=== PATIENT | male | born 1930 | race Caucasian/White ===

== ENCOUNTER 2016-10-18 08:49 | Emergency (ER) | payer OTHER, MEDICARE ==
[~2016-10-18] VITALS: Ht 182.9 cm; Wt 91.0 kg
[~2016-10-18 08:49] MED LIST: FURO-85 PO; IPRA0.03 NAE; OMEP20CA9 PO; ZCR40 PO
[2016-10-18 08:51] VITALS: TEMP 36.9; Ht 182.9 cm; Wt 91.0 kg
--- NOTE | 2016-10-18 09:24 | EMERGENCY ROOM VISIT NOTE ---
History First contact with patient: 09:00 Chief Complaint: BACK PAIN Stated Complaint: BACK PAIN, TROUBLE STANDING Nursing Triage Summary: LLQ abd pain, started last night a little but was severe this am, normal bm yesterday, denies n/v/d, hx diverticulitis History of Present Illness The patient is a 86 year old male who presents to the Emergency Room with complaints of left sided pain. Pain largely started this morning at ~6-7am, although he experienced some minor pain last night Acute sharp pain, without radiation, intermittent. exacerbated by any movement at all, even when taking deep breath. Relieved within seconds by staying still. No nausea, no abdominal pain otherwise. Does have longstanding back pain No previous similar episodes No saddle paresthesia, no new numbness or tingling in toes. Has long standing diarrhea, last episode yesterday, no blood in stool Denies UTI symptoms Has appetite, but didn't eat breakfast today No history of kidney stones, hernia, UTI Does have history of diverticulitis S/p colectomy 1970s No chest pain. Review of Systems See HPI for pertinent positives and negatives. A total of ten systems were reviewed and were otherwise negative. 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 (18) Pneumonia (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 Surgical Problems: (1) H/O colonoscopy (2) H/O esophagogastroduodenoscopy (3) H/O laparoscopy (4) H/O neck surgery (5) H/O shoulder surgery (6) History of back surgery (7) History of carpal tunnel surgery (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 (9) S/P cholecystectomy (10) S/P IVC filter Family History Cancer Hypertension Social History Smoking Status: Never Smoker Alcohol Use: none Drug Use: none Marital Status: Housing Status: lives with family Occupation Status: retired Current/Historical Medications Scheduled Aspirin (Aspirin Ec), 81 MG PO DAILY B-Complex W/Biotin & Folic Aci (Super B-50 Complex), 1 CAP PO DAILY Carvedilol (Carvedilol), 6.25 MG PO BID Cod Liver Oil (Cod Liver Oil), 1 CAP PO DAILY Lisinopril (Zestril), 10 MG PO DAILY Magnesium Oxide (Mag-Ox), 400 MG PO DAILY Omeprazole (Prilosec), 20 MG PO DAILY Potassium Chloride Microencaps (Potassium Chloride Er), 10 MEQ PO DAILY Simvastatin (Simvastatin), 20 MG PO HS Scheduled PRN Furosemide (Lasix), 20 MG PO DAILY PRN for wt gain/swelling Ipratropium [place] (Nasal) (Ipratropium [place]), 2 SPRAYS RUPAL QID PRN for runny nose Oxycodone/Acetaminophen 5MG/325MG (Percocet 5MG/325MG), 1 TABLET PO Q6H PRN for Pain Allergies Coded Allergies: Duloxetine (Verified Adverse Reaction, Mild, DIZZINESS, CONFUSION, 10/18/16) Gabapentin (Verified Adverse Reaction, Mild, DIZZINESS, CONFUSION, 10/18/16) Pregabalin (Verified Adverse Reaction, Mild, DIZZINESS, CONFUSION, 10/18/16) Physical Exam Vital Signs Date Time Temp Pulse Resp B/P Pulse Ox O2 Delivery O2 Flow Rate FiO2 10/18/16 13:22 53 162/72 96 10/18/16 10:35 54 152/82 95 10/18/16 08:51 36.9 78 18 151/87 94 Room Air Physical Exam GENERAL: alert, well appearing, thin, sitting in bed, no acute distress, non- toxic HEAD: Normocephalic, atraumatic. No sinus tenderness. EYES: PERRL, EOMI, normal conjunctiva OROPHARYNX: no exudate, no erythema, lips, buccal mucosa, and tongue normal and mucous membranes are moist NECK: supple, no nuchal rigidity, no adenopathy, non-tender LUNGS: Clear to auscultation. Normal chest wall mechanics, good air entry. No crepitations, crackles, or wheezes HEART: no murmurs, S1 normal and S2 normal CHEST: No reproducible tenderness. ABDOMEN: abdomen soft, non-distended, tender to palpation on LLQ, normo-active bowel sounds, no masses, no rebound or guarding. BACK: Back is symmetrical on inspection, no deformities, no midline tenderness, no CVA tenderness. SKIN: Warm, pink, dry. No erythema, rashes, or bruising. EXTREMITIES: Grossly normal. Moving all 4 limbs, strength 5/5. No pitting edema. Calves non tender. NEURO: Alert, Ox3. No focal deficits. Normal sensorium, cranial nerves II-XII grossly intact, normal speech. Kernig and Brudzinski negative PSYCH: Mood and affect appropriate. Medical Decision & Procedures ER Provider Diagnostic Interpretation: CT OF THE ABDOMEN AND PELVIS WITHOUT CONTRAST CLINICAL HISTORY: Left sided abdominal pain. COMPARISON STUDY: CT of the abdomen and pelvis March 21, 2016. TECHNIQUE: Axial images of the abdomen and pelvis were obtained without IV contrast. Images were reviewed in the axial, sagittal, and coronal planes. FINDINGS: Visualized portions of the lower chest demonstrate trace bilateral pleural effusions and associated atelectasis. There are mild groundglass opacities and mild interlobular septal thickening which suggest pulmonary edema. No pneumatosis, free air or portal venous gas is present. Evaluation of the abdomen and pelvis is suboptimal on this unenhanced exam. Apparent gastric wall thickening may be due to underdistention. The gallbladder surgically absent. There is no biliary or pancreatic ductal dilatation. Bilateral adrenal gland thickening is unchanged. This is chronic. Unenhanced images of the spleen, kidneys and pancreas are unremarkable Global. There is no hydronephrosis. Mild bladder wall thickening is unchanged. No renal, ureteral or bladder calculi are present. There is no evidence for a bowel obstruction. The appendix is normal. There is evidence for anasarca. Bilateral iliopsoas bursa are distended and contain calcifications. There are periarticular calcifications of both hips. These findings are unchanged. No suspicious osseous lesions are present. There are postsurgical findings consistent with an L2-S1 fusion with decompression. An IVC filter is in place. IMPRESSION: 1. No significant change since prior exam. No acute process within the abdomen or pelvis. 2. Study compromised by the lack of IV and oral contrast as well as generalized anasarca which makes evaluation difficult. 3. Trace bilateral pleural effusions and findings suggestive of mild interstitial pulmonary edema. 4. Mild bladder wall thickening which is unchanged. 5. No bowel obstruction. 6. 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 These findings are unchanged. Laboratory Results 10/18/16 09:06 Red Blood Count 4.33, Mean Corpuscular Volume 93.5, Mean Corpuscular Hemoglobin 31.4, Mean Corpuscular Hemoglobin Concent 33.6, Mean Platelet Volume 11.3, Neutrophils (%) (Auto) 50.9, Lymphocytes (%) (Auto) 37.3, Monocytes (%) (Auto) 9.9, Eosinophils (%) (Auto) 1.3, Basophils (%) (Auto) 0.3, Neutrophils # (Auto) 3.04, Lymphocytes # (Auto) 2.23, Monocytes # (Auto) 0.59, Eosinophils # (Auto) 0.08, Basophils # (Auto) 0.02 10/18/16 09:06 Test 10/18/16 09:06 10/18/16 11:53 White Blood Count 5.98 K/uL (4.8-10.8) Red Blood Count 4.33 M/uL (4.7-6.1) Hemoglobin 13.6 g/dL (14.0-18.0) Hematocrit 40.5 % (42-52) Mean Corpuscular Volume 93.5 fL (80-100) Mean Corpuscular Hemoglobin 31.4 pg (25-34) Mean Corpuscular Hemoglobin Concent 33.6 g/dl (32-36) Platelet Count 234 K/uL (130-400) Mean Platelet Volume 11.3 fL (7.4-10.4) Neutrophils (%) (Auto) 50.9 % Lymphocytes (%) (Auto) 37.3 % Monocytes (%) (Auto) 9.9 % Eosinophils (%) (Auto) 1.3 % Basophils (%) (Auto) 0.3 % Neutrophils # (Auto) 3.04 K/uL (1.4-6.5) Lymphocytes # (Auto) 2.23 K/uL (1.2-3.4) Monocytes # (Auto) 0.59 K/uL (0.11-0.59) Eosinophils # (Auto) 0.08 K/uL (0-0.5) Basophils # (Auto) 0.02 K/uL (0-0.2) RDW Standard Deviation 48.0 fL (36.4-46.3) RDW Coefficient of Variation 14.1 % (11.5-14.5) Immature Granulocyte % (Auto) 0.3 % Immature Granulocyte # (Auto) 0.02 K/uL (0.00-0.02) Anion Gap 7.0 mmol/L (3-11) Est Creatinine Clear Calc Drug Dose 51.9 ml/min Estimated GFR () 69.6 Estimated GFR (Non- 60.0 BUN/Creatinine Ratio 17.1 (10-20) Calcium Level 9.0 mg/dl (8.5-10.1) Total Bilirubin 0.5 mg/dl (0.2-1) Aspartate Amino Transf (AST/SGOT) 22 U/L (15-37) Alanine Aminotransferase (ALT/SGPT) 23 U/L (12-78) Alkaline Phosphatase 101 U/L (45-117) Total Protein 7.3 gm/dl (6.4-8.2) Albumin 3.2 gm/dl (3.4-5.0) Globulin 4.1 gm/dl (2.5-4.0) Albumin/Globulin Ratio 0.8 (0.9-2) Lipase 225 U/L (73-393) Urine Color YELLOW Urine Appearance CLEAR (CLEAR) Urine pH 7.0 (4.5-7.5) Urine Specific [place] 1.017 (1.000-1.030) Urine Protein 1+ (NEG) Urine Glucose (UA) NEG (NEG) Urine Ketones NEG (NEG) Urine Occult Blood NEG (NEG) Urine Nitrite NEG (NEG) Urine Bilirubin NEG (NEG) Urine Urobilinogen NEG (NEG) Urine Leukocyte Esterase NEG (NEG) Urine WBC (Auto) 1-5 /hpf (0-5) Urine RBC (Auto) 0-4 /hpf (0-4) Urine Hyaline Casts (Auto) 0 /lpf (0-5) Urine Epithelial Cells (Auto) 5-10 /lpf (0-5) Urine Bacteria (Auto) NEG (NEG) Medical Decision 86 year old male presented with LLQ abdominal pain The patient was evaluated in room B2. A complete history and physical exam was performed. Etiologies such as appendicitis, diverticulitis, inflammatory bowel disease, renal colic, PUD, biliary pathology, pancreatitis, mesenteric ischemia, aortic pathology, infections, genitourinary, UTI, perforated viscus, as well as others were entertained. Patient declined medication for symptom relief. Additionally, encouraged for PO hydration to improve hydration status and allow for him to provide urine sample Lab work was performed. CBC borderline anemia, BMP, LFT, and lipase were all grossly normal limits. CT showed no acute process within the abdomen or pelvis, generalized anasarca, trace bilateral pleural effusions and findings suggestive of mild interstitial pulmonary edema. mild unchanged bladder wall thickening but no bowel obstruction. Urinalysis showed contamination, but no evidence of urinary infection. Likely diagnosis is musculoskeletal pain As such, patient prescribed 20 tablets of Percocet 325mg/5mg and advised for conservative management with Tylenol or Motrin for pain relief after acute phase. Advise to follow up with PCP for reassessment and referral to physiotherapy. Also encouraged to increase oral intake to improve hydration status. Patient understands and agreeable with care plan. Patient discharged home well. [place] Drug Monitoring Program Search Results: patient reviewed within database, no issues identified Departure Information Dispostion Home / Self-Care Condition GOOD Prescriptions Oxycodone/Acetaminophen 5MG/325MG (PERCOCET 5MG/325MG) Tab 1 TABLET PO Q6H Y for Pain, #20 TAB PAIN Prov: Alka. Amaro MD 10/18/16 Referrals Eleazar Huerta M.D. (PCP) Patient Instructions A Signature Page, My [facility] Additional Instructions You were seen in the ED for acute flank pain. Labs were performed which were grossly normal, and CT imaging show no acute processes. As such it is likely that the symptoms you are experiencing are secondary to musculoskeletal origin. As such we have prescribed some pain medication, Percocet 5mg/325mg for temporary relief of acute pain. Please do not take more than the amount prescribed. As the acute pain subsides, use over the counter pain medication such as: - Regular strength (325mg/tab) Tylenol (acetaminophen) 2 tabs every 4-6 hours as needed. Do not exceed 12 tablets in a 24 hour period. Avoid taking more than 4 grams (4000 mg) of Tylenol per day. This includes any other sources of acetaminophen you may take on a regular basis. - Regular strength (200 mg/tab) Advil (ibuprofen) 1-2 tabs every 4-6 hours as needed. Do not exceed a dose of 3200 mg per day. You will benefit from PCP follow up within the next 1-2 week and physiotherapy to strengthen core muscles as a preventative measure. You have been examined and treated today on an emergency basis only. This is not a substitute for, or an effort to provide, complete comprehensive medical care. It is impossible to recognize and treat all injuries or illnesses in a single emergency department visit. It is therefore important that you make a follow up with your physician for close monitoring. Return for worsening symptoms or if you develop fever, vomiting, or any other concerning symptoms.
[2016-10-18 09:57] LABS: BASO % 0.3 %; BASO ABS # 0.02 K/uL (0-0.2); COMPLETE YES; EOS % 1.3 %; HEMATOCRIT 40.5 % (42-52); IG% 0.3 %; LYMPH % 37.3 %; LYMPH ABS # 2.23 K/uL (1.2-3.4); MEAN CELL VOLUME 93.5 fL (80-100); MEAN CORPUSCULAR HEMOGLOBIN 31.4 pg (25-34); MEAN CORPUSCULAR HGB CONC 33.6 g/dl (32-36); MEAN PLATELET VOLUME 11.3 fL (7.4-10.4); MONO % 9.9 %; NEUT % 50.9 %; PLATELET COUNT 234 K/uL (130-400); RED BLOOD COUNT 4.33 M/uL (4.7-6.1); WHITE BLOOD COUNT 5.98 K/uL (4.8-10.8)
[2016-10-18 10:07] LABS: BUN/CREATININE RATIO 17.1 (10-20); CREATININE 1.1 mg/dl (0.60-1.40); POTASSIUM 4.1 mmol/L (3.5-5.1)
[2016-10-18 10:08] LABS: ALB/GLOB RATIO 0.8 (0.9-2)
--- NOTE | 2016-10-18 11:04 | DIAGNOSTIC IMAGING REPORT ---
CT OF THE ABDOMEN AND PELVIS WITHOUT CONTRAST CLINICAL HISTORY: Left sided abdominal pain. COMPARISON STUDY: CT of the abdomen and pelvis March 21, 2016. TECHNIQUE: Axial images of the abdomen and pelvis were obtained without IV contrast. Images were reviewed in the axial, sagittal, and coronal planes. FINDINGS: Visualized portions of the lower chest demonstrate trace bilateral pleural effusions and associated atelectasis. There are mild groundglass opacities and mild interlobular septal thickening which suggest pulmonary edema. No pneumatosis, free air or portal venous gas is present. Evaluation of the abdomen and pelvis is suboptimal on this unenhanced exam. Apparent gastric wall thickening may be due to underdistention. The gallbladder surgically absent. There is no biliary or pancreatic ductal dilatation. Bilateral adrenal gland thickening is unchanged. This is chronic. Unenhanced images of the spleen, kidneys and pancreas are unremarkable Global. There is no hydronephrosis. Mild bladder wall thickening is unchanged. No renal, ureteral or bladder calculi are present. There is no evidence for a bowel obstruction. The appendix is normal. There is evidence for anasarca. Bilateral iliopsoas bursa are distended and contain calcifications. There are periarticular calcifications of both hips. These findings are unchanged. No suspicious osseous lesions are present. There are postsurgical findings consistent with an L2-S1 fusion with decompression. An IVC filter is in place. IMPRESSION: 1. No significant change since prior exam. No acute process within the abdomen or pelvis. 2. Study compromised by the lack of IV and oral contrast as well as generalized anasarca which makes evaluation difficult. 3. Trace bilateral pleural effusions and findings suggestive of mild interstitial pulmonary edema. 4. Mild bladder wall thickening which is unchanged. 5. No bowel obstruction. 6. 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 These findings are unchanged. Electronically signed by: Andrew Adam M.D. 10/18/2016 11:02 AM
[2016-10-18 12:08] LABS: URINE APPEARANCE CLEAR (CLEAR); URINE BILIRUBIN NEG (NEG); URINE COLOR YELLOW; URINE NITRITE NEG (NEG); URINE SPECIFIC GRAVITY 1.017 (1.000-1.030); UROBILINOGEN NEG (NEG); ZZUR CULT IF INDIC CLEAN CATCH NO
[2016-10-18 12:10] LABS: MANUAL MICROSCOPIC REQUIRED? NO; REVIEW REQ? NO
--- NOTE | 2016-10-18 12:25 | EMERGENCY ROOM VISIT NOTE ---
History Report prepared by Maddy: Luna Spencer Under the Supervision of: Dr. Scott Hicks D.O. First contact with patient: 09:00 Chief Complaint: BACK PAIN Stated Complaint: BACK PAIN, TROUBLE STANDING Nursing Triage Summary: LLQ abd pain, started last night a little but was severe this am, normal bm yesterday, denies n/v/d, hx diverticulitis History of Present Illness The patient is an 86 year old male who presents to the Emergency Room with complaints of intermittent pains to his left lower abdominal quadrant since last evening. Currently, he rates his discomfort as a 10/10, which worsens and becomes sharp with any movement, including breathing. After michaela a sharp pain with movement, his pain is alleviated with rest after a few seconds. Patient states that he did begin with mild pains to his LLQ last evening, but the sharp pains began suddenly 3.5 hours prior to arrival. His pains do not radiate anywhere and he denies having chest pain or feeling short of breath. Patient does not history of longstanding back pain but his symptoms today do not feel similar to anything that he has experienced in the past. He denies recent fevers, chills, headache, cough, nausea, vomiting, diarrhea, hematochezia , melena, or urinary symptoms. He does have a history of diverticulitis and s/p cholecystectomy in 1969, but he denies history of kidney stones, hernia or UTI. Source of History: patient Onset: last evening Position: abdomen (LLQ) Symptom Intensity: 10/10 Quality: sharp Timing: intermittent Modifying Factors (Worsening): breathing, movement Modifying Factors (Relieving): rest Associated Symptoms: + back pain, No SOB, No chest pain, No diarrhea, No nausea, No urinary symptoms, No vomiting Review of Systems See HPI for pertinent positives & negatives. A total of 10 systems reviewed and were otherwise negative. 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 Surgical Problems: (1) H/O colonoscopy (2) H/O esophagogastroduodenoscopy (3) H/O laparoscopy (4) H/O neck surgery (5) H/O shoulder surgery (6) History of back surgery (7) History of carpal tunnel surgery (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 (9) S/P cholecystectomy (10) S/P IVC filter Family History Cancer Hypertension Social History Smoking Status: Never Smoker Alcohol Use: none Drug Use: none Marital Status: Housing Status: lives with family Occupation Status: retired Current/Historical Medications Scheduled Aspirin (Aspirin Ec), 81 MG PO DAILY B-Complex W/Biotin & Folic Aci (Super B-50 Complex), 1 CAP PO DAILY Carvedilol (Carvedilol), 6.25 MG PO BID Cod Liver Oil (Cod Liver Oil), 1 CAP PO DAILY Lisinopril (Zestril), 10 MG PO DAILY Magnesium Oxide (Mag-Ox), 400 MG PO DAILY Omeprazole (Prilosec), 20 MG PO DAILY Potassium Chloride Microencaps (Potassium Chloride Er), 10 MEQ PO DAILY Simvastatin (Simvastatin), 20 MG PO HS Scheduled PRN Furosemide (Lasix), 20 MG PO DAILY PRN for wt gain/swelling Ipratropium Amoret (Nasal) (Ipratropium Amoret), 2 SPRAYS RUPAL QID PRN for runny nose Allergies Coded Allergies: Duloxetine (Verified Adverse Reaction, Mild, DIZZINESS, CONFUSION, 10/18/16) Gabapentin (Verified Adverse Reaction, Mild, DIZZINESS, CONFUSION, 10/18/16) Pregabalin (Verified Adverse Reaction, Mild, DIZZINESS, CONFUSION, 10/18/16) Physical Exam Vital Signs Date Time Temp Pulse Resp B/P Pulse Ox O2 Delivery O2 Flow Rate FiO2 10/18/16 10:35 54 152/82 95 10/18/16 08:51 36.9 78 18 151/87 94 Room Air Physical Exam CONSTITUTIONAL/VITAL SIGNS: Reviewed / noted above. GENERAL: Non-toxic in appearance. INTEGUMENTARY: Warm, dry, and [place]. HEAD: Normocephalic. EYES: without scleral icterus or trauma. ENT/OROPHARYNX: clear and moist. LYMPHADENOPATHY/NECK: Is supple without lymphadenopathy or meningismus. RESPIRATORY: Lungs clear and equal. CARDIOVASCULAR: Regular rate and rhythm. GI/ABDOMEN: Soft, nontender. No organomegaly or pulsatile mass. No palpable hernias. No rebound or guarding. Normal bowel sounds. EXTREMITIES: Passive movement of the left hip did not reveal any discomfort. Active movement of the hip causes discomfort in the LLQ and left flank area. BACK: Palpable tenderness to the left flank and anterolateral soft tissues. NEUROLOGICAL: Intact without focal deficits. PSYCHIATRIC: normal affect. MUSCULOSKELETAL: Normally developed with good muscle tone. Medical Decision & Procedures Laboratory Results 10/18/16 09:06 Red Blood Count 4.33, Mean Corpuscular Volume 93.5, Mean Corpuscular Hemoglobin 31.4, Mean Corpuscular Hemoglobin Concent 33.6, Mean Platelet Volume 11.3, Neutrophils (%) (Auto) 50.9, Lymphocytes (%) (Auto) 37.3, Monocytes (%) (Auto) 9.9, Eosinophils (%) (Auto) 1.3, Basophils (%) (Auto) 0.3, Neutrophils # (Auto) 3.04, Lymphocytes # (Auto) 2.23, Monocytes # (Auto) 0.59, Eosinophils # (Auto) 0.08, Basophils # (Auto) 0.02 10/18/16 09:06 Test 10/18/16 09:06 10/18/16 11:53 White Blood Count 5.98 K/uL (4.8-10.8) Red Blood Count 4.33 M/uL (4.7-6.1) Hemoglobin 13.6 g/dL (14.0-18.0) Hematocrit 40.5 % (42-52) Mean Corpuscular Volume 93.5 fL (80-100) Mean Corpuscular Hemoglobin 31.4 pg (25-34) Mean Corpuscular Hemoglobin Concent 33.6 g/dl (32-36) Platelet Count 234 K/uL (130-400) Mean Platelet Volume 11.3 fL (7.4-10.4) Neutrophils (%) (Auto) 50.9 % Lymphocytes (%) (Auto) 37.3 % Monocytes (%) (Auto) 9.9 % Eosinophils (%) (Auto) 1.3 % Basophils (%) (Auto) 0.3 % Neutrophils # (Auto) 3.04 K/uL (1.4-6.5) Lymphocytes # (Auto) 2.23 K/uL (1.2-3.4) Monocytes # (Auto) 0.59 K/uL (0.11-0.59) Eosinophils # (Auto) 0.08 K/uL (0-0.5) Basophils # (Auto) 0.02 K/uL (0-0.2) RDW Standard Deviation 48.0 fL (36.4-46.3) RDW Coefficient of Variation 14.1 % (11.5-14.5) Immature Granulocyte % (Auto) 0.3 % Immature Granulocyte # (Auto) 0.02 K/uL (0.00-0.02) Anion Gap 7.0 mmol/L (3-11) Est Creatinine Clear Calc Drug Dose 51.9 ml/min Estimated GFR () 69.6 Estimated GFR (Non- 60.0 BUN/Creatinine Ratio 17.1 (10-20) Calcium Level 9.0 mg/dl (8.5-10.1) Total Bilirubin 0.5 mg/dl (0.2-1) Aspartate Amino Transf (AST/SGOT) 22 U/L (15-37) Alanine Aminotransferase (ALT/SGPT) 23 U/L (12-78) Alkaline Phosphatase 101 U/L (45-117) Total Protein 7.3 gm/dl (6.4-8.2) Albumin 3.2 gm/dl (3.4-5.0) Globulin 4.1 gm/dl (2.5-4.0) Albumin/Globulin Ratio 0.8 (0.9-2) Lipase 225 U/L (73-393) Urine Color YELLOW Urine Appearance CLEAR (CLEAR) Urine pH 7.0 (4.5-7.5) Urine Specific [place] 1.017 (1.000-1.030) Urine Protein 1+ (NEG) Urine Glucose (UA) NEG (NEG) Urine Ketones NEG (NEG) Urine Occult Blood NEG (NEG) Urine Nitrite NEG (NEG) Urine Bilirubin NEG (NEG) Urine Urobilinogen NEG (NEG) Urine Leukocyte Esterase NEG (NEG) Urine WBC (Auto) 1-5 /hpf (0-5) Urine RBC (Auto) 0-4 /hpf (0-4) Urine Hyaline Casts (Auto) 0 /lpf (0-5) Urine Epithelial Cells (Auto) 5-10 /lpf (0-5) Urine Bacteria (Auto) NEG (NEG) Laboratory results as stated above per my review. ED Course 0900: Previous medical records were reviewed. The patient was evaluated in room B2. A complete history and physical examination was performed. 1130: Upon reevaluation, the patient was doing well and appeared to be resting more comfortably. I updated him on the results of his lab tests. Discharge instructions were also discussed at this time. He verbalized his understanding and agreement with the treatment plan, and he is now ready for disposition. Medical Decision Differential diagnosis: Etiologies such as musculoskeletal, disc herniation, fracture, aortic disease, metastatic disease, cord compression, discitis, infection, renal colic, gastrointestinal, acute exacerbation of chronic back pain, sciatica, cauda equina, as well as others were entertained. This patient is a 86-year-old male who presents to the ED with a chief complaint of left sided abdominal and back pain related to movement. This patient was seen in conjunction with the resident. The patient's exam reveals tenderness to palpation of the soft tissue in the muscle on the left flank and left abdomen. Patient's CT scan of the abdomen and pelvis as well as blood work did not show any acute intra-abdominal process. On my exam it seems to be muscular. His pain is worse with movement and better with lying still. Patient was treated with Percocet prescription. Physical therapy was recommended. He was felt to be stable for discharge and outpatient follow-up. Impression Primary Impression: Pain in abdominal muscle of left flank Scribe Attestation The scribe's documentation has been prepared under my direction and personally reviewed by me in its entirety. I confirm that the note above accurately reflects all work, treatment, procedures, and medical decision making performed by me. Departure Information Dispostion Home / Self-Care Referrals Eleazar Huerta M.D. (PCP) Forms HOME CARE DOCUMENTATION FORM, IMPORTANT VISIT INFORMATION Patient Instructions A Signature Page, My [facility]
[2016-10-18] MEDS ORDERED: OXYC-57 PO (12:44)
[2016-10-18 13:22] VITALS: BP 162/72; PULSE 53; O2SAT 96
[2017-04-14] MEDS ORDERED: ASPI81TA28 PO (09:41)
[2017-04-14] MEDS ORDERED: POTA10TA32 PO (10:14)
[2017-04-14] MEDS ORDERED: MAGN400T6 PO (14:13)
[2017-04-14] MEDS ORDERED: PANT40TA PO (14:38)
[2017-04-14] MEDS ORDERED: MELA1TAB5 PO (14:38)
[2017-04-14] MEDS ORDERED: [UNRECOGNIZED DRUG - CODE] PO (14:38)
[2017-04-14] MEDS ORDERED: MRN/25 PO (14:38)
[2017-04-14] MEDS ORDERED: LEVE500T13 PO (14:38)
[2017-04-14] MEDS ORDERED: ATOR-22 PO (14:38)
[2017-04-14] MEDS ORDERED: DOCU-94 PO (14:38)
[2017-04-14] MEDS ORDERED: CODCAP4 PO (21:47)
[2017-04-15] MEDS ORDERED: MAGN400T6 PO (11:52)
== END 2016-10-18 13:23 | disposition home or self-care (01) ==
LOC: C.EDB 08:51
DX: R10.9 Unspecified abdominal pain (principal); M79.1 Myalgia; I12.9 Hypertensive chronic kidney disease with stage 1 through stage 4 chronic kidney disease, or unspecified chronic kidney disease; E11.22 Type 2 diabetes mellitus with diabetic chronic kidney disease; N18.3 Chronic kidney disease, stage 3 (moderate); E11.42 Type 2 diabetes mellitus with diabetic polyneuropathy; E78.5 Hyperlipidemia, unspecified; Z85.048 Personal history of other malignant neoplasm of rectum, rectosigmoid junction, and anus; K21.9 Gastro-esophageal reflux disease without esophagitis; Z85.828 Personal history of other malignant neoplasm of skin; Z86.74 Personal history of sudden cardiac arrest; Z86.711 Personal history of pulmonary embolism; Z86.718 Personal history of other venous thrombosis and embolism; Z79.82 Long term (current) use of aspirin; Z79.899 Other long term (current) drug therapy

== ENCOUNTER 2016-12-15 12:31 | Emergency (ER) | payer OTHER, MEDICARE ==
[~2016-12-15] VITALS: Ht 182.9 cm; Wt 90.0 kg
[~2016-12-15 12:31] MED LIST changes: +OXYC-57 PO
[2016-12-15 12:36] VITALS: TEMP 36.3; Ht 182.9 cm; Wt 90.0 kg
[2016-12-15 13:35] LABS: BASO % 0.2 %; BASO ABS # 0.01 K/uL (0-0.2); COMPLETE YES; EOS % 0.9 %; HEMATOCRIT 39.9 % (42-52); IG% 0.4 %; LYMPH % 31.7 %; LYMPH ABS # 1.69 K/uL (1.2-3.4); MEAN CELL VOLUME 90.7 fL (80-100); MEAN CORPUSCULAR HEMOGLOBIN 30.7 pg (25-34); MEAN CORPUSCULAR HGB CONC 33.8 g/dl (32-36); MEAN PLATELET VOLUME 11.1 fL (7.4-10.4); MONO % 10.5 %; NEUT % 56.3 %; PLATELET COUNT 244 K/uL (130-400); WHITE BLOOD COUNT 5.33 K/uL (4.8-10.8)
[2016-12-15 13:53] LABS: BUN/CREATININE RATIO 17.7 (10-20); CALCIUM 9.1 mg/dl (8.5-10.1); CREATININE 1.1 mg/dl (0.60-1.40); POTASSIUM 4.2 mmol/L (3.5-5.1)
--- NOTE | 2016-12-15 14:21 | DIAGNOSTIC IMAGING REPORT ---
CT SCAN OF THE ABDOMEN AND PELVIS WITHOUT CONTRAST CLINICAL HISTORY: Lower abdominal pain and constipation COMPARISON STUDY: 10/18/2016 TECHNIQUE: CT scan of the abdomen and pelvis was performed from the lung bases to the proximal femurs. Images are reviewed in the axial, sagittal, and coronal planes. IV contrast was not administered for this examination. CT DOSE: 443.99 mGy.cm FINDINGS: Lower chest: There are stable right basilar airspace opacities, likely reflecting atelectasis/scar. There is a small left pleural effusion. Liver: There is equivocal 5 mm hypodensity within the right hepatic dome. Gallbladder: Surgically absent Spleen: Normal in size and attenuation. Pancreas: Unremarkable. Adrenal glands: There is bilateral adrenal gland thickening similar to the prior study Kidneys: No renal, ureteral, or bladder calculi are visualized. Bowel: There are no transition zones indicate bowel obstruction. There is no evidence of acute appendicitis. There is no evidence of acute diverticulitis. There is moderate fecal retention. Peritoneum: There is no intraperitoneal free air or abdominal ascites. Vasculature: There is an indwelling IVC filter. Adenopathy: None. Pelvic viscera: The bladder, and pelvic viscera are unremarkable. Skeletal structures: There are bilateral iliopsoas bursal calcifications. There are postsurgical changes present within the spine. There is anasarca present. IMPRESSION: 1. Difficult study to interpret due to the lack of intravenous and oral contrast, as well as the generalized anasarca. 2. No evidence of bowel obstruction. No evidence of free air 3. No renal, ureteral, or bladder calculi identified 4. Anasarca 5. Moderate fecal retention 6. Calcifications within a distended iliopsoas bursa bilaterally Electronically signed by: Devante Orosco M.D. 12/15/2016 2:20 PM Dictated Date/Time: 12/15/2016 2:14 PM
[2016-12-15 15:58] LABS: URINE APPEARANCE CLEAR (CLEAR); URINE BILIRUBIN NEG (NEG); URINE COLOR YELLOW; URINE EPITHELIAL CELL AUTO 0-5 /lpf (0-5); URINE NITRITE NEG (NEG); URINE PH 7.5 (4.5-7.5); URINE SPECIFIC GRAVITY 1.019 (1.000-1.030); UROBILINOGEN NEG (NEG); ZZUR CULT IF INDIC CLEAN CATCH NO
[2016-12-15 16:19] LABS: MANUAL MICROSCOPIC REQUIRED? NO; REVIEW REQ? NO
[2016-12-15 16:20] LABS: SULFASALICYLIC ACID POS (NEG)
[2016-12-15] MEDS ORDERED: MAGNESIUM CITRATE 296 ML/BTL PO STA (17:47)
[2016-12-15 18:04] VITALS: BP 167/80; PULSE 60; O2SAT 96
--- NOTE | 2016-12-15 21:57 | EMERGENCY ROOM VISIT NOTE ---
History Report prepared by Maddy: Brad Ivory Under the Supervision of: Dr. Keshawn Cosme M.D. First contact with patient: 13:01 Chief Complaint: CONSTIPATION Stated Complaint: BOWEL TROUBLES Nursing Triage Summary: c/o lower abd pain has not had a BM for 1 wk no n/v History of Present Illness The patient is an 86 year old male who presents to the Emergency Room with complaints of persistent constipation that started a week ago. Per the patient' s , the patient was having diarrhea and couldn't get it to stop, so the patient went to see an associate of Dr. Huerta, and the patient was told to take diarrhea pills. The patient was told to take the pills twice in the morning , twice in the afternoon, and twice in the evening for one week. On the second day of taking the pills, the diarrhea stopped, and he became constipated. He also began having persistent lower abdominal pain. The patient has not had a bowel movement for a week. He has taken suppositories, enemas, and milk of magnesia, but per the patient, nothing is working. The patient has continued to be eating, but nothing is coming out. He took the diarrhea pills for a week. The patient also complains of nausea, and feeling like vomiting, but he has not vomited. He had 12 inches of his colon removed for polyps. Pt denies LOC, headache, fevers, chills, diaphoresis, visual changes, neck pain, chest pain, breathing difficulties, vomiting, back pain, urinary symptoms, numbness, weakness, lymphadenopathy, rash, or other complaints. Source of History: patient, spouse/significant other Onset: A week ago Position: other (global - constipation) Symptom Intensity: has not had bowel movement in a week Timing: other (persistent) Associated Symptoms: + abdominal pain, + diarrhea (ended a week ago), + nausea Note: No other associated symptoms noted. Review of Systems See HPI for pertinent positives and negatives. A total of ten systems were reviewed and were otherwise negative. 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 Surgical Problems: (1) H/O colonoscopy (2) H/O esophagogastroduodenoscopy (3) H/O laparoscopy (4) H/O neck surgery (5) H/O shoulder surgery (6) History of back surgery (7) History of carpal tunnel surgery (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 (9) S/P cholecystectomy (10) S/P IVC filter Family History Cancer Hypertension Social History Smoking Status: Never Smoker Alcohol Use: none Drug Use: none Marital Status: Housing Status: lives with family Occupation Status: retired Current/Historical Medications Scheduled Aspirin (Aspirin Ec), 81 MG PO DAILY B-Complex W/Biotin & Folic Aci (Super B-50 Complex), 1 CAP PO DAILY Carvedilol (Carvedilol), 6.25 MG PO BID Cod Liver Oil (Cod Liver Oil), 1 CAP PO DAILY Lisinopril (Zestril), 10 MG PO DAILY Magnesium Oxide (Mag-Ox), 400 MG PO DAILY Omeprazole (Prilosec), 20 MG PO DAILY Potassium Chloride Microencaps (Potassium Chloride Er), 10 MEQ PO DAILY Simvastatin (Simvastatin), 20 MG PO HS Scheduled PRN Furosemide (Lasix), 20 MG PO DAILY PRN for wt gain/swelling Ipratropium [place] (Nasal) (Ipratropium [place]), 2 SPRAYS RUPAL QID PRN for runny nose Oxycodone/Acetaminophen 5MG/325MG (Percocet 5MG/325MG), 1 TABLET PO Q6H PRN for Pain Allergies Coded Allergies: Duloxetine (Verified Adverse Reaction, Mild, DIZZINESS, CONFUSION, 12/15/16) Gabapentin (Verified Adverse Reaction, Mild, DIZZINESS, CONFUSION, 12/15/16) Pregabalin (Verified Adverse Reaction, Mild, DIZZINESS, CONFUSION, 12/15/16) Physical Exam Vital Signs Date Time Temp Pulse Resp B/P Pulse Ox O2 Delivery O2 Flow Rate FiO2 12/15/16 18:04 60 16 167/80 96 12/15/16 17:41 90 18 159/86 92 Room Air 12/15/16 16:00 61 18 178/75 12/15/16 15:12 58 12/15/16 15:11 60 16 122/90 95 Room Air 12/15/16 12:36 36.3 97 18 120/79 95 Room Air Physical Exam GENERAL: Awake, alert, well-appearing, in no distress HENT: Normocephalic, atraumatic. Oropharynx unremarkable. EYES: Normal conjunctiva. Sclera non-icteric. NECK: Supple. No nuchal rigidity. FROM. No JVD. RESPIRATORY: Clear to auscultation. CARDIAC: Regular rate, normal rhythm. Extremities warm and well perfused. Pulses equal. ABDOMEN: Soft, non-distended. Lower abdominal tenderness. No rebound or guarding. No masses. RECTAL: Deferred. MUSCULOSKELETAL: Chest examination reveals no tenderness. The back is symmetrical on inspection without obvious abnormality. There is no CVA tenderness to palpation. No joint edema. LOWER EXTREMITIES: Calves are equal size bilaterally and non-tender. No edema. No discoloration. RECTAL: No fecal impaction, no hemorrhoids or fissures. NEURO: Normal sensorium. No sensory or motor deficits noted. SKIN: No rash or jaundice noted. Medical Decision & Procedures ER Provider Diagnostic Interpretation: CT: Radiology results as stated below per my review and radiologist interpretation CT SCAN OF THE ABDOMEN AND PELVIS WITHOUT CONTRAST CLINICAL HISTORY: Lower abdominal pain and constipation COMPARISON STUDY: 10/18/2016 TECHNIQUE: CT scan of the abdomen and pelvis was performed from the lung bases to the proximal femurs. Images are reviewed in the axial, sagittal, and coronal planes. IV contrast was not administered for this examination. CT DOSE: 443.99 mGy.cm FINDINGS: Lower chest: There are stable right basilar airspace opacities, likely reflecting atelectasis/scar. There is a small left pleural effusion. Liver: There is equivocal 5 mm hypodensity within the right hepatic dome. Gallbladder: Surgically absent Spleen: Normal in size and attenuation. Pancreas: Unremarkable. Adrenal glands: There is bilateral adrenal gland thickening similar to the prior study Kidneys: No renal, ureteral, or bladder calculi are visualized. Bowel: There are no transition zones indicate bowel obstruction. There is no evidence of acute appendicitis. There is no evidence of acute diverticulitis. There is moderate fecal retention. Peritoneum: There is no intraperitoneal free air or abdominal ascites. Vasculature: There is an indwelling IVC filter. Adenopathy: None. Pelvic viscera: The bladder, and pelvic viscera are unremarkable. Skeletal structures: There are bilateral iliopsoas bursal calcifications. There are postsurgical changes present within the spine. There is anasarca present. IMPRESSION: 1. Difficult study to interpret due to the lack of intravenous and oral contrast, as well as the generalized anasarca. 2. No evidence of bowel obstruction. No evidence of free air 3. No renal, ureteral, or bladder calculi identified 4. Anasarca 5. Moderate fecal retention 6. Calcifications within a distended iliopsoas bursa bilaterally Electronically signed by: Devante Orosco M.D. 12/15/2016 2:20 PM Dictated Date/Time: 12/15/2016 2:14 PM Laboratory Results 12/15/16 13:20 Red Blood Count 4.40, Mean Corpuscular Volume 90.7, Mean Corpuscular Hemoglobin 30.7, Mean Corpuscular Hemoglobin Concent 33.8, Mean Platelet Volume 11.1, Neutrophils (%) (Auto) 56.3, Lymphocytes (%) (Auto) 31.7, Monocytes (%) (Auto) 10.5, Eosinophils (%) (Auto) 0.9, Basophils (%) (Auto) 0.2, Neutrophils # (Auto ) 3.00, Lymphocytes # (Auto) 1.69, Monocytes # (Auto) 0.56, Eosinophils # (Auto ) 0.05, Basophils # (Auto) 0.01 12/15/16 13:20 Test 12/15/16 13:20 12/15/16 15:40 White Blood Count 5.33 K/uL (4.8-10.8) Red Blood Count 4.40 M/uL (4.7-6.1) Hemoglobin 13.5 g/dL (14.0-18.0) Hematocrit 39.9 % (42-52) Mean Corpuscular Volume 90.7 fL (80-100) Mean Corpuscular Hemoglobin 30.7 pg (25-34) Mean Corpuscular Hemoglobin Concent 33.8 g/dl (32-36) Platelet Count 244 K/uL (130-400) Mean Platelet Volume 11.1 fL (7.4-10.4) Neutrophils (%) (Auto) 56.3 % Lymphocytes (%) (Auto) 31.7 % Monocytes (%) (Auto) 10.5 % Eosinophils (%) (Auto) 0.9 % Basophils (%) (Auto) 0.2 % Neutrophils # (Auto) 3.00 K/uL (1.4-6.5) Lymphocytes # (Auto) 1.69 K/uL (1.2-3.4) Monocytes # (Auto) 0.56 K/uL (0.11-0.59) Eosinophils # (Auto) 0.05 K/uL (0-0.5) Basophils # (Auto) 0.01 K/uL (0-0.2) RDW Standard Deviation 45.8 fL (36.4-46.3) RDW Coefficient of Variation 13.8 % (11.5-14.5) Immature Granulocyte % (Auto) 0.4 % Immature Granulocyte # (Auto) 0.02 K/uL (0.00-0.02) Anion Gap 8.0 mmol/L (3-11) Est Creatinine Clear Calc Drug Dose 51.9 ml/min Estimated GFR () 69.6 Estimated GFR (Non- 60.0 BUN/Creatinine Ratio 17.7 (10-20) Calcium Level 9.1 mg/dl (8.5-10.1) Total Bilirubin 0.6 mg/dl (0.2-1) Direct Bilirubin 0.2 mg/dl (0-0.2) Aspartate Amino Transf (AST/SGOT) 20 U/L (15-37) Alanine Aminotransferase (ALT/SGPT) 17 U/L (12-78) Alkaline Phosphatase 95 U/L (45-117) Total Protein 7.2 gm/dl (6.4-8.2) Albumin 3.1 gm/dl (3.4-5.0) Lipase 134 U/L (73-393) Urine Color YELLOW Urine Appearance CLEAR (CLEAR) Urine pH 7.5 (4.5-7.5) Urine Specific [address] 1.019 (1.000-1.030) Urine Protein 1+ (NEG) Urine Glucose (UA) NEG (NEG) Urine Ketones NEG (NEG) Urine Occult Blood NEG (NEG) Urine Nitrite NEG (NEG) Urine Bilirubin NEG (NEG) Urine Urobilinogen NEG (NEG) Urine Leukocyte Esterase NEG (NEG) Urine WBC (Auto) 1-5 /hpf (0-5) Urine RBC (Auto) 0-4 /hpf (0-4) Urine Hyaline Casts (Auto) 1-5 /lpf (0-5) Urine Epithelial Cells (Auto) 0-5 /lpf (0-5) Urine Bacteria (Auto) NEG (NEG) Laboratory results reviewed by me Medications Administered Medications (Trade) Dose Ordered Sig/Behzad Route Start Time Stop Time Status Last Admin Dose Admin Magnesium Citrate (Citrate Of Magnesia Soln) 296 ml NOW STAT PO 12/15/16 17:47 12/15/16 17:49 DC 12/15/16 17:59 296 ML ED Course 1307: The patient was evaluated in room B3B. A complete history and physical exam was performed. 1530: I reevaluated the patient and he is getting an enema. 1705: I reevaluated the patient and he had some bright red bleeding with the start of the enema. I performed a rectal exam and he has no fecal impaction, hemorrhoids, or fissures. The enema was restarted and it is going normally without any signs of bleeding. 1747: Ordered Citrate of Magnesia Soln 296 ml PO. 1755: I reevaluated the patient and he had a bowel movement with the enema. He had no additional bleeding. He is going to follow up with his primary care physician. Discussed results and discharge instructions: He verbalized understanding and agreement. The patient is ready for discharge. Medical Decision Prior records/ancillary studies reviewed. Triage Nursing notes reviewed and agree them. Additional history obtained from family. The patient's history was concerning for constipation. Differential diagnosis: Etiologies such as functional constipation, impaction, obstruction, volvulus, metabolic abnormality, infection, neurologic, as well as others were entertained. Physical examination findings: As above. ER treatment provided: Patient declined analgesia and nausea medication. Soapsuds enema On reassessment the patient felt better. Diagnostics interpreted by me: The labs revealed an unremarkable CBC, chemistry panel, LFTs, lipase and urinalysis Imaging studies: CT scan as above moderate stool noted. The patient was evaluated. He had some lower abdominal discomfort. Blood work and urinalysis were unremarkable. CAT scan imaging showed some moderate stool retention. There is no fecal impaction present. A soapsuds enema was ordered after discussion with the patient and family. As this was being done the patient did have some mild rectal bleeding. I did evaluate the patient. Rectal examination did not reveal any gross bleeding. I could not detect any masses. The patient didn't have any pain on rectal examination. The enema was restarted in the standard fashion. There was no obvious abnormalities with tube insertion. The patient tolerated this well. He then had several chunks of hard stool produced. He felt better with this. He may have had some mucosal bleeding or possible internal hemorrhoid irritation. He has had several enemas and suppositories already. Since he is doing very well and feels better I discussed conservative management. The patient will use magnesium citrate as well as MiraLAX. If he has any problems she will come back to emergency department. He will need follow-up. The patient is no longer taking that antidiarrheal medicine and was advised not to in the future for an extended period. By the evaluation outlined above emergent etiologies such as obstruction, volvulus, metabolic abnormality, infection , neurologic, as well as others were deemed relatively unlikely. The patient and family were informed about the findings as listed above. All questions were answered and they were pleased with the treatment. Return instructions were outlined and the patient was discharged in stable condition. Outpatient prescription management: Referral: The patient was referred back to their primary care physician for follow-up in 2 to 3 days for a recheck of the current condition. The chart was completed utilizing [employer] Speech voice recognition software. Grammatical errors, random word insertions, pronoun errors, and incomplete sentences are an occasional consequence of this system due to software limitations, ambient noise, and hardware issues. Any formal questions or concerns about the content, text, or information contained within the body of this dictation should be directly addressed to the physician for clarification. Impression Primary Impression: Lower abdominal pain Additional Impression: Constipation Scribe Attestation The scribe's documentation has been prepared under my direction and personally reviewed by me in its entirety. I confirm that the note above accurately reflects all work, treatment, procedures, and medical decision making performed by me. Departure Information Dispostion Home / Self-Care Referrals Eleazar Huerta M.D. (PCP) Forms HOME CARE DOCUMENTATION FORM, IMPORTANT VISIT INFORMATION Patient Instructions My [facility] Additional Instructions Magnesium citrate, 1/2 bottle for constipation. If you don't have a good bowel movement in 8 hrs then drink the other half. This is available over-the- counter. Of the MiraLAX, 1 capful daily mixed with a glass of water or juice as needed for constipation. Rest and drink plenty of fluids. Increase fiber in your diet. Return to the ER for worsening abdominal pain, vomiting, fevers, bloody stools, or as needed. Follow-up with your primary care physician in 2 to 3 days for a recheck of your current condition. Problem Qualifiers
[2017-04-14] MEDS ORDERED: ASPI81TA28 PO (09:41)
[2017-04-14] MEDS ORDERED: POTA10TA32 PO (10:14)
[2017-04-14] MEDS ORDERED: MAGN400T6 PO (14:13)
[2017-04-14] MEDS ORDERED: LEVE500T13 PO (14:38)
[2017-04-14] MEDS ORDERED: PANT40TA PO (14:38)
[2017-04-14] MEDS ORDERED: DOCU-94 PO (14:38)
[2017-04-14] MEDS ORDERED: MRN/25 PO (14:38)
[2017-04-14] MEDS ORDERED: [UNRECOGNIZED DRUG - CODE] PO (14:38)
[2017-04-14] MEDS ORDERED: ATOR-22 PO (14:38)
[2017-04-14] MEDS ORDERED: MELA1TAB5 PO (14:38)
[2017-04-15] MEDS ORDERED: MAGN400T6 PO (11:52)
== END 2016-12-15 18:07 | disposition home or self-care (01) ==
LOC: C.EDB 12:32
DX: R10.30 Lower abdominal pain, unspecified (principal); K59.00 Constipation, unspecified; G30.9 Alzheimer's disease, unspecified; F02.80 Dementia in other diseases classified elsewhere, unspecified severity, without behavioral disturbance, psychotic disturbance, mood disturbance, and anxiety; I12.9 Hypertensive chronic kidney disease with stage 1 through stage 4 chronic kidney disease, or unspecified chronic kidney disease; H54.42 Blindness, left eye, normal vision right eye; Z86.74 Personal history of sudden cardiac arrest; K21.9 Gastro-esophageal reflux disease without esophagitis; K57.92 Diverticulitis of intestine, part unspecified, without perforation or abscess without bleeding; Z86.73 Personal history of transient ischemic attack (TIA), and cerebral infarction without residual deficits; E78.5 Hyperlipidemia, unspecified; Z85.048 Personal history of other malignant neoplasm of rectum, rectosigmoid junction, and anus; E11.42 Type 2 diabetes mellitus with diabetic polyneuropathy; N18.3 Chronic kidney disease, stage 3 (moderate); Z80.9 Family history of malignant neoplasm, unspecified; Z82.49 Family history of ischemic heart disease and other diseases of the circulatory system; Z79.82 Long term (current) use of aspirin; Z79.899 Other long term (current) drug therapy

== ENCOUNTER 2017-03-18 12:58 | Emergency (ER) | payer OTHER, MEDICARE ==
[~2017-03-18] VITALS: Ht 182.9 cm; Wt 83.0 kg
[2017-03-18 13:03] VITALS: TEMP 36.3; Ht 182.9 cm; Wt 83.0 kg
--- NOTE | 2017-03-18 14:59 | DIAGNOSTIC IMAGING REPORT ---
RIGHT KNEE 3 VIEWS CLINICAL HISTORY: Fall with right knee pain. FINDINGS: AP, crosstable lateral, and sunrise views of the right knee are obtained. No prior studies are available for comparison at the time of dictation. The skeletal structures are osteopenic. No fracture is seen. A right knee arthroplasty is in near-anatomic alignment. No periprosthetic lucency is identified. There has been undersurface remodeling of the patella. There is a large joint effusion. Prepatellar soft tissue edema is noted. Calcific densities are identified posterior to the knee. IMPRESSION: 1. Soft tissue edema and joint effusion. No fracture is seen. 2. A right knee arthroplasty is in near-anatomic alignment. Electronically signed by: Irving Ricci M.D. 03/18/2017 2:57 PM Dictated Date/Time: 03/18/2017 2:55 PM
[2017-03-18 15:01] VITALS: BP 172/93; PULSE 71; O2SAT 98
[2017-03-18] MEDS ORDERED: HYDR-5688 PO (15:11)
--- NOTE | 2017-03-19 08:24 | EMERGENCY ROOM VISIT NOTE ---
History First contact with patient: 14:42 Chief Complaint: LEG PAIN,LEG INJURY Stated Complaint: RIGHT LEG PAIN History of Present Illness The patient is a 86 year old white male who presents to the Emergency Room with complaints of right knee pain and swelling since last evening. Patient was going up some steps and tripped, falling forward onto his right knee. He had immediate onset of pain. There is a history of previous total knee arthroplasty over [address] Coburn in [place]. He had been doing very well with the knee until last night. He has pain with weightbearing. He is ambulatory with a limp. No numbness or tingling. No treatment yet. His family accompanies him today. No symptoms in the left knee. He denies any right ankle pain. Review of Systems REVIEW OF SYSTEM: HEENT: No dizziness, visual problems, hearing loss, or tinnitus. There is no difficulty swallowing and no oral lesions are present. PULMONARY: No cough, shortness of breath, sputum production or hemoptysis. CARDIOVASCULAR: No chest pain, palpitations, shortness of breath or peripheral edema. GASTROINTESTINAL: No diarrhea, constipation, nausea, vomiting, or abdominal pain. GENITOURINARY: No dysuria, frequency, urgency or nocturia. NEUROLOGIC: No weakness, muscle tenderness, epilepsy or history of neurological problems. MUSCULOSKELETAL: No history of joint tenderness/swelling. Positive history of arthritis and arthralgias. SKIN: No rashes or lesions. PSYCHIATRIC: No history of depression or mental illness. Positive history of Alzheimer's. ENDOCRINE: No history of thyroid disorders, or abnormal hair growth. 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 (18) Pneumonia (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 Surgical Problems: (1) H/O colonoscopy (2) H/O esophagogastroduodenoscopy (3) H/O laparoscopy (4) H/O neck surgery (5) H/O shoulder surgery (6) History of back surgery (7) History of carpal tunnel surgery (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 (9) S/P cholecystectomy (10) S/P IVC filter Family History Cancer Hypertension Social History Smoking Status: Former Smoker Smokeless Tobacco Use: No Alcohol Use: none Drug Use: none Marital Status: Housing Status: lives with family Occupation Status: retired Current/Historical Medications Scheduled Aspirin (Aspirin Ec), 81 MG PO DAILY Atorvastatin (Lipitor), 20 MG PO DAILY B-Complex W/Biotin & Folic Aci (Super B-50 Complex), 1 CAP PO DAILY Calcium Polycarbophil (Eq Fiber Laxative), 625 MG PO DAILY Carvedilol (Carvedilol), 6.25 MG PO BID Cod Liver Oil (Cod Liver Oil), 1 CAP PO DAILY Docusate Sodium (Colace), 100 MG PO BID Dronabinol (Marinol), 2.5 MG PO BID Levetiracetam (Keppra), 500 MG PO BID Lisinopril (Zestril), 10 MG PO DAILY Magnesium Oxide (Mag-Ox), 400 MG PO DAILY Melatonin (Kp Melatonin), 3 MG PO HS Pantoprazole (Protonix), 40 MG PO DAILY Potassium Chloride Microencaps (Potassium Chloride Er), 10 MEQ PO DAILY Scheduled PRN Hydrocodone/Acetaminophen 5MG/325MG ([place] 5MG/325MG), 1-2 TABLET PO Q6 PRN for Pain Allergies Coded Allergies: Duloxetine (Verified Adverse Reaction, Mild, DIZZINESS, CONFUSION, 03/18/17) Gabapentin (Verified Adverse Reaction, Mild, DIZZINESS, CONFUSION, 03/18/17) Pregabalin (Verified Adverse Reaction, Mild, DIZZINESS, CONFUSION, 03/18/17) Physical Exam Vital Signs Date Time Temp Pulse Resp B/P (MAP) Pulse Ox O2 Delivery O2 Flow Rate FiO2 03/18/17 15:01 71 18 172/93 98 Room Air 03/18/17 13:03 36.3 71 18 107/64 97 Room Air Pain Rating (0-10): 0 Physical Exam Gen.: Well-developed, well-nourished, elderly white male, in no acute distress. Obvious discomfort. Laying on a bed. Alert and oriented. Skin: Warm and dry with good turgor. No rashes or lesions. No ecchymosis or erythema. The patient is not diaphoretic. No abrasions. Large intra- articular effusion. Musculoskeletal: Large knee effusion in the right knee. Anterior discomfort with palpation. No pain over the medial or lateral joint lines. He does have discomfort over the patellar tendon and quadriceps tendon. No defect in either of these. He is able to perform a straight leg raise. Full terminal extension. Flexion to around 60 secondary to discomfort. Stable collateral ligament. No pain with palpation over the posterior Popliteal Fossa. No pain with palpation over his ch, ankle, or foot. Neurologic: Gross sensation is intact across the right leg by soft touch. Peripheral pulses are 2+. Medical Decision & Procedures ER Provider Diagnostic Interpretation: Radiographic imaging obtained today of the knee, was read by radiology. Well seated implant. No evidence of loosening. No fracture. Intra-articular effusion is noted. ED Course Patient and his family were educated regarding today's findings. Conservative care measures were discussed. X-ray imaging of the knee was obtained. He has no evidence of tendon rupture and no collateral ligament instability. Patient was placed in an Bill wrap for compression and a knee immobilizer for support. He may weight-bear as tolerated. He has a walker at home. Patient will need to follow-up with orthopedics for reexamination. His family would like him to see Dr. Duron. Number was provided. ice and elevate frequently to reduce pain and swelling. Gentle motion daily. Return to the ED for any other concerns. Prescription was provided for [place] 5 mg to be used for severe pain. Constipation precautions were given. He may use Tylenol every 6 hours for mild pain. Medical Decision Possibility of contusion, tendon rupture, ligament rupture, fracture, hardware failure, implantable loosening and infection were considered. Impression Primary Impression: Knee effusion, right Additional Impression: Fall at home Departure Information Dispostion Home / Self-Care Condition GOOD Prescriptions Hydrocodone/Acetaminophen 5MG/325MG ([place] 5MG/325MG) Tab 1-2 TABLET PO Q6 Y for Pain, #15 TAB For Initial Treatment Prov: Harpreet Carmen,P.A. 03/18/17 Referrals Erich Duron M.D. Forms HOME CARE DOCUMENTATION FORM, SPECIAL NARCOTICS INSTRUCTIONS, IMPORTANT VISIT INFORMATION Patient Instructions My [email or web address] Additional Instructions Ice and elevate frequently to reduce pain and swelling Use the Bill wrap for compression and support Use the knee immobilizer when you are standing or walking Use your walker for support until painfully resolves Follow-up with [place] [facility]-call on Monday for an appointment Tylenol every 6 hours as needed for mild discomfort Substitute [place] 5 mg every 6 hours as needed for more severe pain-be careful for loss of balance and constipation which can occur with this medication Return to the ED for any other concerns Problem Qualifiers
[2017-04-14] MEDS ORDERED: ASPI81TA28 PO (09:41)
[2017-04-14] MEDS ORDERED: POTA10TA32 PO (10:14)
[2017-04-14] MEDS ORDERED: MAGN400T6 PO (14:13)
[2017-04-14] MEDS ORDERED: PANT40TA PO (14:38)
[2017-04-14] MEDS ORDERED: MRN/25 PO (14:38)
[2017-04-14] MEDS ORDERED: DOCU-94 PO (14:38)
[2017-04-14] MEDS ORDERED: ATOR-22 PO (14:38)
[2017-04-14] MEDS ORDERED: LEVE500T13 PO (14:38)
[2017-04-14] MEDS ORDERED: MELA1TAB5 PO (14:38)
[2017-04-14] MEDS ORDERED: [UNRECOGNIZED DRUG - CODE] PO (14:38)
[2017-04-14] MEDS ORDERED: CODCAP4 PO (21:47)
[2017-04-15] MEDS ORDERED: MAGN400T6 PO (11:52)
== END 2017-03-18 15:51 | disposition home or self-care (01) ==
LOC: C.EDB 13:00 → C.EDD 15:51
DX: M25.461 Effusion, right knee (principal); W01.0XXA Fall on same level from slipping, tripping and stumbling without subsequent striking against object, initial encounter; E78.5 Hyperlipidemia, unspecified; I12.9 Hypertensive chronic kidney disease with stage 1 through stage 4 chronic kidney disease, or unspecified chronic kidney disease; N18.3 Chronic kidney disease, stage 3 (moderate); E11.42 Type 2 diabetes mellitus with diabetic polyneuropathy; G30.9 Alzheimer's disease, unspecified; F02.80 Dementia in other diseases classified elsewhere, unspecified severity, without behavioral disturbance, psychotic disturbance, mood disturbance, and anxiety; K21.9 Gastro-esophageal reflux disease without esophagitis; K57.92 Diverticulitis of intestine, part unspecified, without perforation or abscess without bleeding; Z86.711 Personal history of pulmonary embolism; Z86.718 Personal history of other venous thrombosis and embolism; Z86.73 Personal history of transient ischemic attack (TIA), and cerebral infarction without residual deficits; Z85.038 Personal history of other malignant neoplasm of large intestine; Z85.828 Personal history of other malignant neoplasm of skin; Z96.651 Presence of right artificial knee joint; Z90.49 Acquired absence of other specified parts of digestive tract; Z98.890 Other specified postprocedural states; Z79.82 Long term (current) use of aspirin; Z79.899 Other long term (current) drug therapy; Z87.891 Personal history of nicotine dependence; Z88.8 Allergy status to other drugs, medicaments and biological substances; Z80.9 Family history of malignant neoplasm, unspecified; Z82.49 Family history of ischemic heart disease and other diseases of the circulatory system

== ENCOUNTER → 2017-03-31 | Outpatient (CLI) | payer OTHER, MEDICARE ==
[~2017-03-31] MED LIST changes: +ASPI81TA28 PO; +ATOR-22 PO; +B-CO1CAP2 PO; +CODCAP4 PO; +CRG625 PO; +DOCU-94 PO; -FURO-85 PO; +HYDR-5688 PO; -IPRA0.03 NAE; +LEVE500T13 PO; +LISI-461 PO; +MAGN400T6 PO; +MELA1TAB5 PO; +MRN/25 PO; -OMEP20CA9 PO; -OXYC-57 PO; +PANT40TA PO; +POTA10TA32 PO; -ZCR40 PO; +[UNRECOGNIZED DRUG - CODE] PO
[2017-03-31 12:23] LABS: BASO % 0.3 %; BASO ABS # 0.02 K/uL (0-0.2); COMPLETE YES; EOS % 1.1 %; IG% 0.2 %; LYMPH % 41.5 %; MEAN CELL VOLUME 95.6 fL (80-100); MEAN CORPUSCULAR HEMOGLOBIN 29.8 pg (25-34); MEAN CORPUSCULAR HGB CONC 31.2 g/dl (32-36); MEAN PLATELET VOLUME 10.9 fL (7.4-10.4); MONO % 7.7 %; NEUT % 49.2 %; PLATELET COUNT 295 K/uL (130-400); RED BLOOD COUNT 4.29 M/uL (4.7-6.1); WHITE BLOOD COUNT 6.27 K/uL (4.8-10.8)
--- NOTE | 2017-03-31 13:42 | DIAGNOSTIC IMAGING REPORT ---
3 phase bone scan BONE SCAN 3 PHASE LIMITED CLINICAL HISTORY: RT PAINFUL TKA post arthroplasty pain TECHNIQUE: Is examination is performed following the administration and multiphase fashion of 27.5 mCi technetium 99m MDP. FINDINGS: There is a slight increase in vascular flow to the right knee is compared to the left. Blood pool images demonstrate increased activity about the right knee with similar findings seen involving the static images at 3 hour time delay. There is no significant and/or only minimal degenerative activity left knee. IMPRESSION: 1. Increased vascular flow as well as activity about the patient's total right knee arthroplasty. 2. The appearance is suggestive of loosening. 3. Remainder the study is unremarkable. Electronically signed by: Dane Mccann M.D. 03/31/2017 1:41 PM Dictated Date/Time: 03/31/2017 1:39 PM
== END | disposition home or self-care (01) ==
LOC: C.NUCL 09:17
PROVIDERS: ATTEND Orthopaedic Surgery Sports Medicine
DX: Z96.651 Presence of right artificial knee joint (principal)

== ENCOUNTER 2017-04-14 14:51 | Observation (INO) | payer OTHER, MEDICARE ==
[~2017-04-14] VITALS: Ht 182.9 cm; Wt 84.5 kg
[~2017-04-14 14:51] MED LIST changes: -B-CO1CAP2 PO; -CODCAP4 PO; -CRG625 PO; -LISI-461 PO
[2017-04-14] MEDS ORDERED: SODIUM CHLORIDE 0.9% 1000ML 1,000 ML IV STA (16:04)
--- NOTE | 2017-04-14 16:07 | EMERGENCY ROOM VISIT NOTE ---
History Report prepared by Maddy: Christi Griggs Under the Supervision of: Dr. Stacie Garcia M.D. First contact with patient: 15:16 Chief Complaint: LEG PAIN,LEG INJURY Stated Complaint: HAVING TROUBLE WALKING History of Present Illness The patient is a 86 year old male who presents to the Emergency Room with complaints of persistent bilateral lower extremity weakness starting about 2-3 days ago. He currently denies any pain. The patient has a history of back surgeries occurring about 3 years ago. He has a normal appetite and a normal fluid intake. He denies fevers, bowel/urinary incontinence, or any other complaints. He has an appointment with his PCP in two days. He has a history of cardiac arrest occurring a few years ago. He had a head bleed from a fall in January. He denies any history of kidney disease. He is not currently on any blood thinners. Source of History: patient Onset: about 2-3 days ago Position: other (bilateral lower extremity ) Symptom Intensity: No pain Quality: other (weakness) Timing: other (persistent) Associated Symptoms: No fevers Review of Systems See HPI for pertinent positives & negatives. A total of 10 systems reviewed and were otherwise negative. 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 (19) Pneumonia (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 (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 (22) Weakness of both legs Surgical Problems: (1) H/O colonoscopy (2) H/O esophagogastroduodenoscopy (3) H/O laparoscopy (4) H/O neck surgery (5) H/O shoulder surgery (6) History of back surgery (7) History of carpal tunnel surgery (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 (9) S/P cholecystectomy (10) S/P IVC filter Family History Cancer Hypertension Social History Smoking Status: Former Smoker Alcohol Use: none Drug Use: none Marital Status: Housing Status: lives with family Occupation Status: retired Current/Historical Medications Scheduled Aspirin (Aspirin Ec), 81 MG PO DAILY Atorvastatin (Lipitor), 20 MG PO DAILY B-Complex W/Biotin & Folic Aci (Super B-50 Complex), 1 CAP PO DAILY Carvedilol (Carvedilol), 6.25 MG PO BID Cod Liver Oil (Cod Liver Oil), 1 CAP PO DAILY Docusate Sodium (Colace), 100 MG PO BID Dronabinol (Marinol), 2.5 MG PO BID Levetiracetam (Keppra), 500 MG PO BID Lisinopril (Zestril), 10 MG PO DAILY Magnesium Oxide (Mag-Ox), 400 MG PO BID Melatonin (Kp Melatonin), 3 MG PO HS Pantoprazole (Protonix), 40 MG PO DAILY Potassium Chloride Microencaps (Potassium Chloride Er), 10 MEQ PO DAILY Scheduled PRN Calcium Polycarbophil (Eq Fiber Laxative), 625 MG PO DAILY PRN for Constipation Allergies Coded Allergies: Duloxetine (Verified Adverse Reaction, Mild, DIZZINESS, CONFUSION, 03/18/17) Gabapentin (Verified Adverse Reaction, Mild, DIZZINESS, CONFUSION, 03/18/17) Pregabalin (Verified Adverse Reaction, Mild, DIZZINESS, CONFUSION, 03/18/17) Physical Exam Vital Signs Date Time Temp Pulse Resp B/P (MAP) Pulse Ox O2 Delivery O2 Flow Rate FiO2 04/14/17 18:21 60 22 97 04/14/17 18:20 36.5 04/14/17 18:11 36.5 63 18 153/74 97 04/14/17 18:02 58 04/14/17 18:00 153/74 04/14/17 14:53 76 20 114/67 94 Physical Exam Vital signs reviewed. General: Well-appearing, elderly, in no significant distress. HEENT: No scleral icterus, PERRLA, neck supple. Atraumatic. Cardiovascular: Regular rate and rhythm, no extra sounds. Pulmonary: Clear to auscultation bilaterally, normal work of breathing. Abdomen: Soft, nontender, nondistended, positive bowel sounds. Musculoskeletal: Atraumatic, no peripheral edema. Neurologic: Patient awake alert and oriented x 3, full strength in all 4 extremities. Cranial nerves 2 through 12 grossly intact. Skin: Warm, dry, no rash Medical Decision & Procedures ER Provider Diagnostic Interpretation: CT results as stated below per my review and radiologist interpretation: CT SCAN OF THE BRAIN WITHOUT IV CONTRAST CLINICAL HISTORY: Generalized weakness. Difficulty with ambulation. COMPARISON STUDY: CT of the brain dated 07/26/2014. TECHNIQUE: Unenhanced axial CT scan of the brain is performed from the vertex to the skull base. CT DOSE: 687.98 mGy.cm FINDINGS: Brain parenchyma: There are age-related involutional changes noting moderate patchy subcortical and periventricular microangiopathic change. There is no hemorrhage, mass effect, or evidence of acute territorial ischemia by CT criteria. Ding-white matter is preserved. No extra-axial fluid collection is seen. Ventricles, sulci, cisterns: Prominent secondary to involutional change. Intracranial vasculature: There is atherosclerotic calcification of the cavernous carotid and vertebral arteries. Soft tissues: Suture material is present within the suboccipital scalp. Postoperative changes suggested in the upper cervical region. Calvarium: The skeletal structures are osteopenic. No depressed calvarial fracture is seen. Sinuses and mastoids: The visualized paranasal sinuses are clear. There are bilateral mastoid effusions. Orbits: The bony orbits are grossly intact. There is a right ocular lens implant. The left ocular lens appears dislocated, located centrally within the globe. IMPRESSION: 1. Senescent changes as above with no hemorrhage, mass effect, or evidence of acute territorial ischemia by CT criteria. 2. 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 This is similar to previous. Electronically signed by: Irving Ricci M.D. 04/14/2017 5:11 PM Dictated Date/Time: 04/14/2017 4:[address] SCAN OF THE LUMBAR SPINE WITHOUT IV CONTRAST CLINICAL HISTORY: Bilateral lower extremity weakness. Back pain. History of spinal fusion. COMPARISON STUDY: CT scan of lumbar spine dated 08/15/2014. Abdominal CT dated 12/15/2016. MRI of the lumbar spine dated 09/15/2015. TECHNIQUE: CT scan of the lumbar spine is performed from the lower thoracic spine to the sacrum. Images are reviewed in the axial, sagittal, and coronal planes. IV contrast was not administered for this examination. CT DOSE: 1097.85 mGy.cm FINDINGS: The skeletal structures are osteopenic. There is no evidence of fracture or malalignment. Vertebral body height is maintained throughout the lumbar spine. There is minimal anterolisthesis at L4-L5. Alignment is otherwise preserved. There are postoperative changes from laminectomy and posterior fusion from L2 through S1. Intervertebral screws are present at all levels, anterolaterally located on the right at L4 and L5. There is lucency around the screws in L2, possibly representing loosening. Interposition bone graft is noted. No lytic or blastic lesions are seen. The transverse processes are intact. There is no bony erosion or evidence of periostitis. Anterior osteophytes are seen throughout. There is moderate degenerative disc space narrowing at L4-L5 with advanced disc space narrowing seen at L5-S1. Posterior discussed by complex is present is levels. There is no evidence of large disc herniation suggested by CT comment no CT evidence of significant central canal stenosis. There are 2 metallic densities identified within the central canal posteriorly at the level of T12. These are best seen on sagittal images #32 and #33. The visualized sacrum and bony pelvis appear intact. Postoperative change is seen within the paraspinous musculature which is largely atrophic. There is advanced atherosclerotic calcification of the abdominal aorta. A left pleural effusion is partially visualized. Bilateral adrenal adenomas are identified. The kidneys demonstrate cortical atrophy. There is no evidence of hydronephrosis. An IVC filter is in place. IMPRESSION: 1. No acute bony abnormality is seen involving the lumbar spine. 2. There are postoperative changes from L2-S1 spinal fusion. The orthopedic hardware appears intact. 3. There is lucency around the interpedicular screws in L2, which may represent loosening. 4. There are 2 metallic foreign bodies identified within the central canal posteriorly at the level of T12. These may represent catheter fragments, and clinical correlation will be essential. This is likely a contraindication to MRI. 5. Left pleural effusion. 6. Additional findings as above. Electronically signed by: Irving Ricci M.D. 04/14/2017 5:23 PM Dictated Date/Time: 04/14/2017 5:13 PM Laboratory Results Test 04/14/17 16:30 04/14/17 16:32 04/14/17 17:55 Immature Granulocyte % (Auto) 0.2 % White Blood Count 5.83 K/uL (4.8-10.8) Red Blood Count 3.99 M/uL (4.7-6.1) Hemoglobin 12.4 g/dL (14.0-18.0) Hematocrit 37.8 % (42-52) Mean Corpuscular Volume 94.7 fL (80-100) Mean Corpuscular Hemoglobin 31.1 pg (25-34) Mean Corpuscular Hemoglobin Concent 32.8 g/dl (32-36) Platelet Count 213 K/uL (130-400) Mean Platelet Volume 11.0 fL (7.4-10.4) Neutrophils (%) (Auto) 45.0 % Lymphocytes (%) (Auto) 46.1 % Monocytes (%) (Auto) 7.5 % Eosinophils (%) (Auto) 0.9 % Basophils (%) (Auto) 0.3 % Neutrophils # (Auto) 2.62 K/uL (1.4-6.5) Lymphocytes # (Auto) 2.69 K/uL (1.2-3.4) Monocytes # (Auto) 0.44 K/uL (0.11-0.59) Eosinophils # (Auto) 0.05 K/uL (0-0.5) Basophils # (Auto) 0.02 K/uL (0-0.2) Immature Granulocyte # (Auto) 0.01 K/uL (0.00-0.02) Prothrombin Time 12.7 SECONDS (9.0-12.0) Prothromb Time International Ratio 1.2 (0.9-1.1) Activated Partial Thromboplast Time 25.9 SECONDS (21.0-31.0) Partial Thromboplastin Ratio 1.0 Total Bilirubin 0.3 mg/dl (0.2-1) Direct Bilirubin 0.1 mg/dl (0-0.2) Aspartate Amino Transf (AST/SGOT) 28 U/L (15-37) Alanine Aminotransferase (ALT/SGPT) 24 U/L (12-78) Alkaline Phosphatase 125 U/L (45-117) Total Protein 7.0 gm/dl (6.4-8.2) Albumin 2.5 gm/dl (3.4-5.0) Bedside Troponin I < 0.030 ng/ml (0-0.045) Urine Color DK YELLOW Urine Appearance CLEAR (CLEAR) Urine pH 6.5 (4.5-7.5) Urine Specific [place] 1.024 (1.000-1.030) Urine Protein 2+ (NEG) Urine Glucose (UA) NEG (NEG) Urine Ketones TRACE (NEG) Urine Occult Blood NEG (NEG) Urine Nitrite NEG (NEG) Urine Bilirubin NEG (NEG) Urine Urobilinogen NEG (NEG) Urine Leukocyte Esterase NEG (NEG) Urine WBC (Auto) 1-5 /hpf (0-5) Urine RBC (Auto) 0-4 /hpf (0-4) Urine Hyaline Casts (Auto) 1-5 /lpf (0-5) Urine Epithelial Cells (Auto) 5-10 /lpf (0-5) Urine Bacteria (Auto) NEG (NEG) Laboratory results per my review. Medications Administered Medications (Trade) Dose Ordered Sig/Behzad Route Start Time Stop Time Status Last Admin Dose Admin Sodium Chloride 1,000 ml @ 125 mls/hr Q8H STAT IV 04/14/17 16:04 04/14/17 20:11 DC 04/14/17 16:04 125 MLS/HR Magnesium Sulfate (Magnesium Sulfate) 2 gm NOW STAT IV 04/14/17 17:18 04/14/17 17:19 DC 04/14/17 17:18 2 GM ECG Indication: weakness Rate (beats per minute): 56 Rhythm: sinus bradycardia Findings: no acute ischemic change, no ectopy ED Course 1516: Past medical records reviewed. The patient was evaluated in room A04B. A complete history and physical examination was performed. 1604: Sodium Chloride 1000 ml @ 125 mls/hr IV 1718: Magnesium Sulfate 2 gm IV 1801: Upon reevaluation, the patient is resting comfortably. I discussed laboratory and radiographic results with him. He verbalized agreement of the treatment plan. I spoke with Dr. Sanz of the [facility]. The patient will be evaluated for further management and care. Medical Decision Medication Reconciliation: I attest that I have personally reviewed the patient' s current medication list. Blood Pressure Screening: Patient was found to have normal blood pressure on screening and does not require follow-up. This pt was evaluated and appeared to be in no distress. IV access was obtained and lab work was drawn. CT head is negative for acute IC abnl. Lab work reveals a mag of 1.4 for which he was repleted with 2 gm IV. IVF were given. Pt was unsteady on his feet for my ambulation trial. UA is negative for infection. EKG reveals a sinus bay with no ectopy or ischemia. Cardiac enzymes are negative. He will be evaluated by the hospitalist service for further management. Pt and family are aware of the plan and agree. Consults Time Called: 1755 Consulting Physician: Dr. Sanz of the [facility] Returned Call: [address] Sanz of the [facility]. Impression Primary Impression: Hypomagnesemia Additional Impression: Generalized weakness Scribe Attestation The scribe's documentation has been prepared under my direction and personally reviewed by me in its entirety. I confirm that the note above accurately reflects all work, treatment, procedures, and medical decision making performed by me. Departure Information Dispostion Being Evaluated By Hospitalist Prescriptions Magnesium Oxide (Mag-Ox) 400 Mg Tab 400 MG PO BID for 30 Days, #60 TAB Prov: Miranda Mckeon M.D. 04/15/17 Referrals Eleazar Huerta M.D. (PCP) Patient Instructions My [facility] Problem Qualifiers
[2017-04-14 16:47] LABS: BASO % 0.3 %; BASO ABS # 0.02 K/uL (0-0.2); COMPLETE YES; EOS % 0.9 %; HEMATOCRIT 37.8 % (42-52); IG% 0.2 %; LYMPH % 46.1 %; LYMPH ABS # 2.69 K/uL (1.2-3.4); MEAN CELL VOLUME 94.7 fL (80-100); MEAN CORPUSCULAR HEMOGLOBIN 31.1 pg (25-34); MEAN CORPUSCULAR HGB CONC 32.8 g/dl (32-36); MONO % 7.5 %; PLATELET COUNT 213 K/uL (130-400); RED BLOOD COUNT 3.99 M/uL (4.7-6.1); WHITE BLOOD COUNT 5.83 K/uL (4.8-10.8)
[2017-04-14 17:03] LABS: BUN/CREATININE RATIO 18.5 (10-20); CALCIUM 8.8 mg/dl (8.5-10.1); CREATININE 1.1 mg/dl (0.60-1.40); MAGNESIUM 1.4 mg/dl (1.8-2.4); POTASSIUM 4.2 mmol/L (3.5-5.1)
[2017-04-14 17:08] LABS: INR 1.2 (0.9-1.1); PROTHROMBIN TIME (PATIENT) 12.7 SECONDS (9.0-12.0)
--- NOTE | 2017-04-14 17:13 | DIAGNOSTIC IMAGING REPORT ---
CT SCAN OF THE BRAIN WITHOUT IV CONTRAST CLINICAL HISTORY: Generalized weakness. Difficulty with ambulation. COMPARISON STUDY: CT of the brain dated 07/26/2014. TECHNIQUE: Unenhanced axial CT scan of the brain is performed from the vertex to the skull base. CT DOSE: 687.98 mGy.cm FINDINGS: Brain parenchyma: There are age-related involutional changes noting moderate patchy subcortical and periventricular microangiopathic change. There is no hemorrhage, mass effect, or evidence of acute territorial ischemia by CT criteria. Ding-white matter is preserved. No extra-axial fluid collection is seen. Ventricles, sulci, cisterns: Prominent secondary to involutional change. Intracranial vasculature: There is atherosclerotic calcification of the cavernous carotid and vertebral arteries. Soft tissues: Suture material is present within the suboccipital scalp. Postoperative changes suggested in the upper cervical region. Calvarium: The skeletal structures are osteopenic. No depressed calvarial fracture is seen. Sinuses and mastoids: The visualized paranasal sinuses are clear. There are bilateral mastoid effusions. Orbits: The bony orbits are grossly intact. There is a right ocular lens implant. The left ocular lens appears dislocated, located centrally within the globe. IMPRESSION: 1. Senescent changes as above with no hemorrhage, mass effect, or evidence of acute territorial ischemia by CT criteria. 2. 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 This is similar to previous. Electronically signed by: Irving Ricci M.D. 04/14/2017 5:11 PM Dictated Date/Time: 04/14/2017 4:59 PM
[2017-04-14] MEDS ORDERED: MAGNESIUM SULFATE 1GM / D5W 1 GM BAG IV STA (17:18)
--- NOTE | 2017-04-14 17:24 | DIAGNOSTIC IMAGING REPORT ---
CT SCAN OF THE LUMBAR SPINE WITHOUT IV CONTRAST CLINICAL HISTORY: Bilateral lower extremity weakness. Back pain. History of spinal fusion. COMPARISON STUDY: CT scan of lumbar spine dated 08/15/2014. Abdominal CT dated 12/15/2016. MRI of the lumbar spine dated 09/15/2015. TECHNIQUE: CT scan of the lumbar spine is performed from the lower thoracic spine to the sacrum. Images are reviewed in the axial, sagittal, and coronal planes. IV contrast was not administered for this examination. CT DOSE: 1097.85 mGy.cm FINDINGS: The skeletal structures are osteopenic. There is no evidence of fracture or malalignment. Vertebral body height is maintained throughout the lumbar spine. There is minimal anterolisthesis at L4-L5. Alignment is otherwise preserved. There are postoperative changes from laminectomy and posterior fusion from L2 through S1. Intervertebral screws are present at all levels, anterolaterally located on the right at L4 and L5. There is lucency around the screws in L2, possibly representing loosening. Interposition bone graft is noted. No lytic or blastic lesions are seen. The transverse processes are intact. There is no bony erosion or evidence of periostitis. Anterior osteophytes are seen throughout. There is moderate degenerative disc space narrowing at L4-L5 with advanced disc space narrowing seen at L5-S1. Posterior discussed by complex is present is levels. There is no evidence of large disc herniation suggested by CT comment no CT evidence of significant central canal stenosis. There are 2 metallic densities identified within the central canal posteriorly at the level of T12. These are best seen on sagittal images #32 and #33. The visualized sacrum and bony pelvis appear intact. Postoperative change is seen within the paraspinous musculature which is largely atrophic. There is advanced atherosclerotic calcification of the abdominal aorta. A left pleural effusion is partially visualized. Bilateral adrenal adenomas are identified. The kidneys demonstrate cortical atrophy. There is no evidence of hydronephrosis. An IVC filter is in place. IMPRESSION: 1. No acute bony abnormality is seen involving the lumbar spine. 2. There are postoperative changes from L2-S1 spinal fusion. The orthopedic hardware appears intact. 3. There is lucency around the interpedicular screws in L2, which may represent loosening. 4. There are 2 metallic foreign bodies identified within the central canal posteriorly at the level of T12. These may represent catheter fragments, and clinical correlation will be essential. This is likely a contraindication to MRI. 5. Left pleural effusion. 6. Additional findings as above. Electronically signed by: Irving Ricci M.D. 04/14/2017 5:23 PM Dictated Date/Time: 04/14/2017 5:13 PM
[2017-04-14 18:17] LABS: URINE APPEARANCE CLEAR (CLEAR); URINE BILIRUBIN NEG (NEG); URINE COLOR DK YELLOW; URINE NITRITE NEG (NEG); URINE PH 6.5 (4.5-7.5); URINE SPECIFIC GRAVITY 1.024 (1.000-1.030); UROBILINOGEN NEG (NEG); ZZUR CULT IF INDIC CLEAN CATCH NO
[2017-04-14 18:21] LABS: MANUAL MICROSCOPIC REQUIRED? NO; REVIEW REQ? NO
--- NOTE | 2017-04-14 18:22 | History and Physical ---
History & Physical Date & Time of Service: Apr 14, 2017 at 18:22 Chief Complaint: Having Trouble Walking Primary Care Physician: Eleazar Huerta M.D. History of Present Illness Source: patient this is a 86 yo M with past medical hx of chronic low back pain , spinal stenosis , HTN , CKD stage 3 came to ED for weakness of bilat lower ext pt mentions he has been experiencing chronic low back pain with radiation to both upper thigh and knee R> L had lumber decompression done by Dr Mix on 2013 pt mentions his back pain was not improved after the procedure recently he started to experience bilateral lower ext weakness feels his legs would give away he sustained a fall few days back , landed on his left knee worried about it -as he is being evaluated by Orthopedics -considering for left knee replacement during my time of interview , pt was comfortable mentions does not have any pain or discomfort while lying still or sitting walking for few min /standing causes severe pain on lower back , shooting down to legs denies of any bowel or bladder incontinence no report of fever or chills , no SOB , chest pain no Syncope Past Medical/Surgical History Medical Problems: (1) Benign hypertension Status: Chronic (2) Blind left eye Status: Chronic (3) Cardiac arrest Status: Resolved (4) DIAB MADDY WO COMPL, TYPE II OR UNSPEC TYPE, NOT UNCNTRLD Status: Chronic (5) DISC DEGENERATION NOS Status: Chronic (6) Diverticulitis Status: Resolved (7) GERD (gastroesophageal reflux disease) Status: Chronic (8) H/O diastolic dysfunction Status: Chronic (9) History of CVA (cerebrovascular accident) Status: Chronic (10) Hx of deep venous thrombosis Status: Chronic (11) Hx of squamous cell carcinoma of skin Status: Chronic (12) Hx of vertigo Status: Chronic (13) Hx pulmonary embolism Status: Chronic (14) Hyperlipidemia Status: Chronic (15) 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 Osorio- nonspecific colinic thickening, minor diverticulosis, tubular adenoma- per Epic record Status: Chronic (2) H/O esophagogastroduodenoscopy Permanent Comment: 08/2012- Normal oropharynx. A few erosions at the gastroesophageal junction. Normal stomach. Normal examined duodenum. Status: Chronic (3) H/O laparoscopy Status: Chronic (4) H/O neck surgery Status: Chronic (5) H/O shoulder surgery Status: Chronic (6) History of back surgery Status: Chronic (7) History of carpal tunnel surgery Status: Chronic (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 Status: Chronic (9) S/P cholecystectomy Status: Chronic (10) S/P IVC filter Status: Chronic Family History Cancer Hypertension Social History Smoking Status: Former Smoker Drug Use: none Marital Status: Housing status: lives with family Occupational Status: retired Immunizations History of Influenza Vaccine: Yes History of Tetanus Vaccine?: Unknown History of Pneumococcal: Yes History of Hepatitis B Vaccine: No Multi-Drug Resistant Organisms History of MDRO: No Allergies Coded Allergies: Duloxetine (Verified Adverse Reaction, Mild, DIZZINESS, CONFUSION, 03/18/17) Gabapentin (Verified Adverse Reaction, Mild, DIZZINESS, CONFUSION, 03/18/17) Pregabalin (Verified Adverse Reaction, Mild, DIZZINESS, CONFUSION, 03/18/17) Home Medications Scheduled Aspirin (Aspirin Ec), 81 MG PO DAILY Atorvastatin (Lipitor), 20 MG PO DAILY B-Complex W/Biotin & Folic Aci (Super B-50 Complex), 1 CAP PO DAILY Carvedilol (Carvedilol), 6.25 MG PO BID Cod Liver Oil (Cod Liver Oil), 1 CAP PO DAILY Docusate Sodium (Colace), 100 MG PO BID Dronabinol (Marinol), 2.5 MG PO BID Levetiracetam (Keppra), 500 MG PO BID Lisinopril (Zestril), 10 MG PO DAILY Magnesium Oxide (Mag-Ox), 400 MG PO DAILY Melatonin (Kp Melatonin), 3 MG PO HS Pantoprazole (Protonix), 40 MG PO DAILY Potassium Chloride Microencaps (Potassium Chloride Er), 10 MEQ PO DAILY Scheduled PRN Calcium Polycarbophil (Eq Fiber Laxative), 625 MG PO DAILY PRN for Constipation Review of Systems Constitutional: No fever, No chills, No sweats, No weight loss, No weakness, No fatigue, No problem reported Eyes: No worsening of vision, No eye pain, No redness, No discharge, No diplopia, No problem reported ENT: No hearing loss, No unusual epistaxis, No nasal symptoms, No sore throat, No tinnitus, No dental problems, No trouble swallowing, No problem reported Respiratory: No cough, No sputum, No wheezing, No shortness of breath, No dyspnea on exertion, No dyspnea at rest, No hemoptysis, No problem reported Cardiovascular: No chest pain, No orthopnea, No PND, No edema, No claudication , No palpitations, No problem reported Abdomen: No pain, No nausea, No vomiting, No diarrhea, No constipation, No GI bleeding, No problem reported Musculoskeletal: + problem reported (as per HPI -low back pain /rediation to leg , left knee pain ) Neurologic: + weakness, + numbness/tingling, + balance problems Physical Exam Vital Signs Date Time Temp Pulse Resp B/P (MAP) Pulse Ox O2 Delivery O2 Flow Rate FiO2 04/14/17 18:11 36.5 63 18 153/74 97 04/14/17 18:02 58 04/14/17 14:53 76 20 114/67 94 General Appearance: no apparent distress Head: normocephalic, atraumatic Eyes: sclerae normal Respiratory/Chest: chest non-tender, lungs clear, normal breath sounds, no respiratory distress Cardiovascular: regular rate, rhythm, no edema Abdomen/GI: normal bowel sounds, non tender, soft Back: normal inspection Extremities/Musculoskelatal: no pedal edema, normal range of motion (limited range of motion on left leg due to back pain ) Neurologic/Psych: no motor/sensory deficits, alert, normal mood/affect Skin: normal color, warm/dry Lymphatic: no adenopathy Diagnostics Laboratory Results Results Past 24 Hours Test 04/14/17 16:30 04/14/17 16:32 04/14/17 17:55 Range/Units White Blood Count 5.83 4.8-10.8 K/uL Red Blood Count 3.99 4.7-6.1 M/uL Hemoglobin 12.4 14.0-18.0 g/dL Hematocrit 37.8 42-52 % Mean Corpuscular Volume 94.7 80-100 fL Mean Corpuscular Hemoglobin 31.1 25-34 pg Mean Corpuscular Hemoglobin Concent 32.8 32-36 g/dl Platelet Count 213 130-400 K/uL Mean Platelet Volume 11.0 7.4-10.4 fL Neutrophils (%) (Auto) 45.0 % Lymphocytes (%) (Auto) 46.1 % Monocytes (%) (Auto) 7.5 % Eosinophils (%) (Auto) 0.9 % Basophils (%) (Auto) 0.3 % Neutrophils # (Auto) 2.62 1.4-6.5 K/uL Lymphocytes # (Auto) 2.69 1.2-3.4 K/uL Monocytes # (Auto) 0.44 0.11-0.59 K/uL Eosinophils # (Auto) 0.05 0-0.5 K/uL Basophils # (Auto) 0.02 0-0.2 K/uL RDW Standard Deviation 49.2 36.4-46.3 fL RDW Coefficient of Variation 14.1 11.5-14.5 % Immature Granulocyte % (Auto) 0.2 % Immature Granulocyte # (Auto) 0.01 0.00-0.02 K/uL Prothrombin Time 12.7 9.0-12.0 SECONDS Prothromb Time International Ratio 1.2 0.9-1.1 Activated Partial Thromboplast Time 25.9 21.0-31.0 SECONDS Partial Thromboplastin Ratio 1.0 Sodium Level 143 136-145 mmol/L Potassium Level 4.2 3.5-5.1 mmol/L Chloride Level 109 98-107 mmol/L Carbon Dioxide Level 29 21-32 mmol/L Anion Gap 5.0 3-11 mmol/L Blood Urea Nitrogen 20 7-18 mg/dl Creatinine 1.10 0.60-1.40 mg/dl Est Creatinine Clear Calc Drug Dose 55.0 ml/min Estimated GFR () 69.6 Estimated GFR (Non- 60.0 BUN/Creatinine Ratio 18.5 10-20 Random Glucose 106 70-99 mg/dl Calcium Level 8.8 8.5-10.1 mg/dl Magnesium Level 1.4 1.8-2.4 mg/dl Total Bilirubin 0.3 0.2-1 mg/dl Direct Bilirubin 0.1 0-0.2 mg/dl Aspartate Amino Transf (AST/SGOT) 28 15-37 U/L Alanine Aminotransferase (ALT/SGPT) 24 12-78 U/L Alkaline Phosphatase 125 45-117 U/L Total Protein 7.0 6.4-8.2 gm/dl Albumin 2.5 3.4-5.0 gm/dl Bedside Troponin I < 0.030 0-0.045 ng/ml Diagnostic Radiology MRI OF LUMBER SPINE IMPRESSION: 1. No acute bony abnormality is seen involving the lumbar spine. 2. There are postoperative changes from L2-S1 spinal fusion. The orthopedic hardware appears intact. 3. There is lucency around the interpedicular screws in L2, which may represent loosening. 4. There are 2 metallic foreign bodies identified within the central canal posteriorly at the level of T12. These may represent catheter fragments, and clinical correlation will be essential. This is likely a contraindication to MRI. 5. Left pleural effusion. 6. Additional findings as above. CT HEAD WITH OUT CONTRAST : IMPRESSION: 1. Senescent changes as above with no hemorrhage, mass effect, or evidence of acute territorial ischemia by CT criteria. 2. 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 This is similar to previous. 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 There are postoperative changes from L2-S1 spinal fusion. The orthopedic hardware appears intact. 2. There is lucency around the interpedicular screws in L2, which may represent loosening. 3. There are 2 metallic foreign bodies identified within the central canal posteriorly at the level of T12. These may represent catheter fragments, and clinical correlation will be essential. This is likely a contraindication to MRI. spinal Ortho Dr Mix consulted pt had spinal decompression done by Dr Mix cont pain management ordered for PT/OT Pain management consult requested LOW MG : replaced repeat lytes in AM CKD STAGE 3 : renal function at baseline cont to monitor TYPE 2 DM: not on meds diet controlled HTN : cont lisinopril , Coreg GERD : PPI HX OF DVT /PE : S/P IVC filter placement not on anticoagulation due to bleeding risk ( hx of subdural hge ) FULL CODE DISPOSITION : lives with his was independent with ADL's -uses walker mentions of having difficulty to get around with constant back pain PT/OT eval requested social service consult for discharge planning Medicine follow up with Dr Su Level of Care Med/Surg Resuscitation Status FULL RESUSCITATION VTE Prophylaxis VTE Risk Assessment Done? Y/N: Yes Risk Level: Moderate Given or contraindicated: Unfractionated heparin SQ Additional Copies To Eleazar Huerta M.D., Gregory M., D.O.
[2017-04-14] MEDS ORDERED: ONDANSETRON INJ 2 MG/ML 2 ML VIAL IV PRN (19:00)
[2017-04-14] MEDS ORDERED: ALUMINUM/MAGNESIUM/SIMETH (MAALOX MAX) 30 ML UDC PO PRN (19:00)
[2017-04-14] MEDS ORDERED: ACETAMINOPHEN 325 MG TAB PO PRN (19:00)
[2017-04-14] MEDS ORDERED: POLYETHYLENE (MIRALAX) 17 GM PACK PO PRN (19:00)
[2017-04-14] MEDS ORDERED: MAGNESIUM HYDROXIDE SUSP 30 ML UDC PO PRN (19:00)
[2017-04-14] MEDS ORDERED: CALCIUM POLYCARBOPHIL 1 TAB PO PRN (19:00)
[2017-04-14 19:30] VITALS: BP 158/76; PULSE 55; O2SAT 98; Ht 182.9 cm; Wt 84.5 kg
[2017-04-14] MEDS ORDERED: IV FLUIDS COMPLETED PRN (19:30)
[2017-04-14] MEDS ORDERED: NON-FORMULARY MEDICATION (Melatonin (Kp Melatonin) 3 MG) PO SCH (21:00)
[2017-04-14] MEDS: CARVEDILOL 6.25 MG TAB PO SCH (21:35)
[2017-04-14] MEDS: HEPARIN SOD 5000 UNIT/0.5 ML CARP SQ SCH (21:35)
[2017-04-14] MEDS: LEVETIRACETAM 500 MG TAB PO SCH (21:36)
[2017-04-14] MEDS: DOCUSATE SODIUM 100 MG CAP PO SCH (21:36)
[2017-04-14] MEDS: DRONABINOL 2.5 MG CAP PO SCH (21:37)
[2017-04-14] MEDS ORDERED: CRG625 PO (21:47)
[2017-04-14] MEDS ORDERED: LISI-461 PO (21:47)
[2017-04-14] MEDS ORDERED: B-CO1CAP2 PO (21:47)
[2017-04-14] MEDS ORDERED: CODCAP PO (21:47)
[2017-04-14 23:20] VITALS: BP 129/66; PULSE 53; TEMP 36.4; O2SAT 96
[2017-04-15] MEDS: HEPARIN SOD 5000 UNIT/0.5 ML CARP SQ SCH (05:51)
[2017-04-15 07:22] VITALS: BP 126/82; PULSE 53; TEMP 36.5; O2SAT 95
[2017-04-15 08:24] LABS: HEMATOCRIT 36.4 % (42-52); MEAN CELL VOLUME 94.8 fL (80-100); MEAN CORPUSCULAR HEMOGLOBIN 30.7 pg (25-34); MEAN CORPUSCULAR HGB CONC 32.4 g/dl (32-36); MEAN PLATELET VOLUME 11.5 fL (7.4-10.4); PLATELET COUNT 205 K/uL (130-400); RED BLOOD COUNT 3.84 M/uL (4.7-6.1); WHITE BLOOD COUNT 5.93 K/uL (4.8-10.8)
[2017-04-15 08:53] LABS: BUN/CREATININE RATIO 17.5 (10-20); CALCIUM 8.9 mg/dl (8.5-10.1); MAGNESIUM 1.8 mg/dl (1.8-2.4); POTASSIUM 3.8 mmol/L (3.5-5.1)
[2017-04-15] MEDS ORDERED: ASPIRIN 81 MG ECTAB PO SCH (09:00)
[2017-04-15] MEDS ORDERED: FOLIC ACI PO SCH (09:00)
[2017-04-15] MEDS ORDERED: ATORVASTATIN 20 MG TAB PO SCH (09:00)
[2017-04-15] MEDS ORDERED: NON-FORMULARY MEDICATION (Cod Liver Oil 1 CAP) PO SCH (09:00)
[2017-04-15] MEDS ORDERED: BIOTIN PO SCH (09:00)
[2017-04-15] MEDS ORDERED: MAGNESIUM OXIDE 400 MG TAB PO SCH (09:00)
[2017-04-15] MEDS ORDERED: LISINOPRIL 10 MG TAB PO SCH (09:00)
[2017-04-15] MEDS ORDERED: POTASSIUM CHLORIDE 10 MEQ TABCR PO SCH (09:00)
[2017-04-15] MEDS: CARVEDILOL 6.25 MG TAB PO SCH (09:00)
[2017-04-15] MEDS ORDERED: B COMPLEX PO SCH (09:00)
[2017-04-15] MEDS ORDERED: PANTOprazole SOD 40 MG TAB PO SCH (09:00)
[2017-04-15] MEDS: DOCUSATE SODIUM 100 MG CAP PO SCH (09:04)
[2017-04-15] MEDS: DRONABINOL 2.5 MG CAP PO SCH (09:04)
[2017-04-15] MEDS: LEVETIRACETAM 500 MG TAB PO SCH (09:07)
--- NOTE | 2017-04-15 11:18 | Medical Consult ---
Consultation Date of Consultation: Apr 15, 2017. Attending Physician: Miranda Mckeon M.D. Reason for Consultation: LE weakness History of Present Illness 86 yo male reports he awoke with BLE weakness yesterday that was spontaneous and not associated with LBP, numbness or incontinence. He was seen in ED, admitted and workup included: CT Lspine-showed prior L2-S1 dec/PSF done by Maria Del Rosario 2013, no significant stenosis or HW complication, incidental note of metallic fragments in post epidural space T11-12(present on studies as far back as 2012-without known explanation, no hx of thoracic procedures or SCS placement , note: he has tolerated MRIs since they were identified); noted to have low Mg. Weakness improved since correction. He currently denies LBP, radicular pain or other c/o's. Past Medical/Surgical History Medical Problems: (1) Edema Status: Acute (2) Fall at home Status: Acute (3) Generalized weakness Status: Acute (4) GI bleed Status: Acute (5) Hypomagnesemia Status: Acute (6) Knee effusion, right Status: Acute (7) Olecranon bursitis Status: Acute (8) Pain in abdominal muscle of left flank Status: Acute Family History Cancer Hypertension Social History Smoking Status: Former Smoker Drug Use: none Marital Status: Housing Status: lives with family Occupation Status: retired Allergies Coded Allergies: Duloxetine (Verified Adverse Reaction, Mild, DIZZINESS, CONFUSION, 03/18/17) Gabapentin (Verified Adverse Reaction, Mild, DIZZINESS, CONFUSION, 03/18/17) Pregabalin (Verified Adverse Reaction, Mild, DIZZINESS, CONFUSION, 03/18/17) Current Inpatient Medications Current Inpatient Medications Medications (Trade) Dose Ordered Sig/Behzad Route Start Time Stop Time Status Last Admin Dose Admin Aspirin (Ecotrin Tab) 81 mg DAILY PO 04/15/17 09:00 05/15/17 08:59 04/15/17 09:06 81 MG Atorvastatin Calcium (Lipitor Tab) 20 mg DAILY PO 04/15/17 09:00 05/15/17 08:59 04/15/17 09:06 20 MG Calcium Polycarbophil (Fibercon Tab) 1 tab DAILY PRN PO 04/14/17 19:00 05/14/17 18:59 Carvedilol (Coreg Tab) 6.25 mg BID PO 04/14/17 21:00 05/14/17 20:59 Docusate Sodium (coLACE CAP) 100 mg BID PO 04/14/17 21:00 05/14/17 20:59 04/15/17 09:04 100 MG Dronabinol (Marinol Cap) 2.5 mg BID PO 04/14/17 21:00 05/14/17 20:59 04/15/17 09:04 2.5 MG Levetiracetam (Keppra Tab) 500 mg BID PO 04/14/17 21:00 05/14/17 20:59 04/15/17 09:07 500 MG Lisinopril (Zestril Tab) 10 mg DAILY PO 04/15/17 09:00 05/15/17 08:59 04/15/17 09:07 10 MG Magnesium Oxide (Mag-Ox Tab) 400 mg DAILY PO 04/15/17 09:00 05/15/17 08:59 04/15/17 09:05 400 MG Pantoprazole Sodium (Protonix Tab) 40 mg DAILY PO 04/15/17 09:00 05/15/17 08:59 04/15/17 09:06 40 MG Potassium Chloride (Klor-Con M10) 10 meq DAILY PO 04/15/17 09:00 05/15/17 08:59 04/15/17 09:06 10 MEQ Heparin Sodium (Porcine) (Heparin Sq 5000 Unit/0.5ml) 5,000 unit Q8 SQ 04/14/17 22:00 05/14/17 21:59 04/15/17 05:51 5,000 UNIT Acetaminophen (Tylenol Tab) 650 mg Q4H PRN PO 04/14/17 19:00 05/14/17 18:59 Al Hydrox/Mg Hydrox/Simethicone (Maalox Max Susp) 15 ml Q4H PRN PO 04/14/17 19:00 05/14/17 18:59 Magnesium Hydroxide (Milk Of Magnesia Susp) 30 ml Q6H PRN PO 04/14/17 19:00 05/14/17 18:59 Polyethylene (Miralax Powder Packet) 17 gm DAILY PRN PO 04/14/17 19:00 05/14/17 18:59 Ondansetron HCl (Zofran Inj) 4 mg Q6H PRN IV 04/14/17 19:00 05/14/17 18:59 Miscellaneous (Iv Fluids Completed) 1 ea PRN PRN N/A 04/14/17 19:30 04/14/18 19:29 Review of Systems Constitutional: No fever, No chills, No problem reported Musculoskeletal: No joint pain, No muscle pain, No swelling, No calf pain, No problem reported Neurologic: No memory loss, No paralysis, No weakness, No numbness/tingling, No vertigo, No balance problems, No problem reported Physical Exam Date Time Temp Pulse Resp B/P (MAP) Pulse Ox O2 Delivery O2 Flow Rate FiO2 04/15/17 07:25 Room Air 04/15/17 07:22 36.5 53 17 126/82 (97) 95 Room Air 04/14/17 23:25 Room Air 04/14/17 23:20 36.4 53 18 129/66 (87) 96 Room Air 04/14/17 19:30 55 18 158/76 98 Room Air 04/14/17 19:12 36.5 57 18 162/78 95 04/14/17 18:51 57 18 95 04/14/17 18:31 162/78 04/14/17 18:21 60 22 97 04/14/17 18:20 36.5 04/14/17 18:11 36.5 63 18 153/74 97 04/14/17 18:02 58 04/14/17 18:00 153/74 04/14/17 14:53 76 20 114/67 94 General Appearance: no apparent distress Head: normocephalic, atraumatic Extremities/Musculoskelatal: normal inspection, no calf tenderness, normal range of motion, non-tender Neurologic/Psych: no motor/sensory deficits (good motor strength in BLE's except 4/5 Left DF str....normal sens Lt tch, diminished DTRS, no clonus), alert , normal mood/affect Laboratory Results Last 24 Hours Test 04/14/17 16:30 04/14/17 16:32 04/14/17 17:55 04/15/17 07:39 White Blood Count 5.83 K/uL 5.93 K/uL Red Blood Count 3.99 M/uL 3.84 M/uL Hemoglobin 12.4 g/dL 11.8 g/dL Hematocrit 37.8 % 36.4 % Mean Corpuscular Volume 94.7 fL 94.8 fL Mean Corpuscular Hemoglobin 31.1 pg 30.7 pg Mean Corpuscular Hemoglobin Concent 32.8 g/dl 32.4 g/dl Platelet Count 213 K/uL 205 K/uL Mean Platelet Volume 11.0 fL 11.5 fL Neutrophils (%) (Auto) 45.0 % Lymphocytes (%) (Auto) 46.1 % Monocytes (%) (Auto) 7.5 % Eosinophils (%) (Auto) 0.9 % Basophils (%) (Auto) 0.3 % Neutrophils # (Auto) 2.62 K/uL Lymphocytes # (Auto) 2.69 K/uL Monocytes # (Auto) 0.44 K/uL Eosinophils # (Auto) 0.05 K/uL Basophils # (Auto) 0.02 K/uL RDW Standard Deviation 49.2 fL 48.9 fL RDW Coefficient of Variation 14.1 % 14.1 % Immature Granulocyte % (Auto) 0.2 % Immature Granulocyte # (Auto) 0.01 K/uL Prothrombin Time 12.7 SECONDS Prothromb Time International Ratio 1.2 Activated Partial Thromboplast Time 25.9 SECONDS Partial Thromboplastin Ratio 1.0 Sodium Level 143 mmol/L 141 mmol/L Potassium Level 4.2 mmol/L 3.8 mmol/L Chloride Level 109 mmol/L 108 mmol/L Carbon Dioxide Level 29 mmol/L 28 mmol/L Anion Gap 5.0 mmol/L 5.0 mmol/L Blood Urea Nitrogen 20 mg/dl 18 mg/dl Creatinine 1.10 mg/dl 1.00 mg/dl Est Creatinine Clear Calc Drug Dose 55.0 ml/min 57.1 ml/min Estimated GFR () 69.6 78.1 Estimated GFR (Non- 60.0 67.4 BUN/Creatinine Ratio 18.5 17.5 Random Glucose 106 mg/dl 80 mg/dl Calcium Level 8.8 mg/dl 8.9 mg/dl Magnesium Level 1.4 mg/dl 1.8 mg/dl Total Bilirubin 0.3 mg/dl Direct Bilirubin 0.1 mg/dl Aspartate Amino Transf (AST/SGOT) 28 U/L Alanine Aminotransferase (ALT/SGPT) 24 U/L Alkaline Phosphatase 125 U/L Total Protein 7.0 gm/dl Albumin 2.5 gm/dl Bedside Troponin I < 0.030 ng/ml Urine Color DK YELLOW Urine Appearance CLEAR Urine pH 6.5 Urine Specific [place] 1.024 Urine Protein 2+ Urine Glucose (UA) NEG Urine Ketones TRACE Urine Occult Blood NEG Urine Nitrite NEG Urine Bilirubin NEG Urine Urobilinogen NEG Urine Leukocyte Esterase NEG Urine WBC (Auto) 1-5 /hpf Urine RBC (Auto) 0-4 /hpf Urine Hyaline Casts (Auto) 1-5 /lpf Urine Epithelial Cells (Auto) 5-10 /lpf Urine Bacteria (Auto) NEG Assessment & Plan Improved LE weakness without spine related cause on current imaging. Likely related to Magnesium deficiency. Metallic fragments are not explained but appear stable and not clinically signfiicant and can safely have MRI in futture if necessary. thank you for consultation
--- NOTE | 2017-04-15 11:50 | Discharge Instructions ---
Discharge Instructions Date of Service Apr 15, 2017. Admission Reason for Admission: Back Pain, Weakness Of Both Leg Discharge Discharge Diagnosis / Problem: WEAKNESS OF LOWER EXTREMITY /CHRONIC BACK PAIN Discharge Goals Goal(s): Decrease discomfort, Improve disease control, Diagnostic testing Activity Recommendations Activity Limitations: as noted below ( TOLERATED ) Shower/Bathe: no limitations . Instructions / Follow-Up Instructions / Follow-Up HOSPITAL FOLLOW UP DR BEE ON April @ 2: 45 PM Current Hospital Diet Patient's current hospital diet: AHA Diet (Heart Healthy) Discharge Diet Recommended Diet: AHA Diet (Heart Healthy) Pending Studies Studies pending at discharge: no Medical Emergencies . Who to Call and When: Medical Emergencies: If at any time you feel your situation is an emergency, please call 911 immediately. . Non-Emergent Contact Non-Emergency issues call your: Primary Care Provider . . "Provider Documentation" section prepared by Miranda Mckeon. . VTE Core Measure Inpt VTE Proph given/why not?: Unfractionated heparin SQ
[2017-04-15] MEDS ORDERED: MAGN400T6 PO (11:52)
[2017-04-15 11:56] VITALS: BP 126/82; PULSE 53; TEMP 36.5; O2SAT 95
--- NOTE | 2017-04-15 13:42 | Progress Note ---
Internal Med Progress Note Date of Service: Apr 15, 2017. Provider Documentation: SUBJECTIVE: no complain of back pain today lower ext weakness has improved able to get up and walk with waker ( pt's baseline ) OBJECTIVE: Vital Signs-as noted below Exam: General-elderly male, no sign of distress Eyes-sclera non icteric ENT-NAD Neck- no JVD Lungs-CTA, no rales or wheeze Heart-regular S1/S2 Abdomen-soft, non tender Extremities-no lower ext edema Neuro-AAo x3, no focal neurological deficit Lab data as noted below. ASSESSMENT & PLAN: LOWER EXT WEAKNESS : symptom has improved markedly no complain of back pain able to walk with walker MRI report shows: 1. There are postoperative changes from L2-S1 spinal fusion. The orthopedic hardware appears intact. 2. There is lucency around the interpedicular screws in L2, which may represent loosening. 3. There are 2 metallic foreign bodies identified within the central canal posteriorly at the level of T12. These may represent catheter fragments, and clinical correlation will be essential. This is likely a contraindication to MRI. appreciate input from spinal Ortho no surgical intervention recommended PT/OT cont pain management stable to be discharged home today LOW MG : possible causing lower ext weakness corrected Mg Oxide tab increased to BID ( was on once daily ) CKD STAGE 3 : renal function at baseline TYPE 2 DM: not on meds diet controlled HTN : cont lisinopril , Coreg GERD : PPI HX OF DVT /PE : S/P IVC filter placement not on anticoagulation due to bleeding risk ( hx of subdural hge ) FULL CODE DISPOSITION discharge home today out pt follow up with Orthopedics already has home health visiting nurse Medicine follow up with Dr Su Vital Signs: Date Time Temp Pulse Resp B/P (MAP) Pulse Ox O2 Delivery O2 Flow Rate FiO2 04/15/17 11:56 36.5 53 17 95 Room Air 04/15/17 07:25 Room Air 04/15/17 07:22 36.5 53 17 126/82 (97) 95 Room Air 04/14/17 23:25 Room Air 04/14/17 23:20 36.4 53 18 129/66 (87) 96 Room Air 04/14/17 19:30 55 18 158/76 98 Room Air 04/14/17 19:12 36.5 57 18 162/78 95 04/14/17 18:51 57 18 95 04/14/17 18:31 162/78 04/14/17 18:21 60 22 97 04/14/17 18:20 36.5 04/14/17 18:11 36.5 63 18 153/74 97 04/14/17 18:02 58 04/14/17 18:00 153/74 04/14/17 14:53 76 20 114/67 94 Lab Results: Results Past 24 Hours Test 04/14/17 16:30 04/14/17 16:32 04/14/17 17:55 04/15/17 07:39 Range/Units White Blood Count 5.83 5.93 4.8-10.8 K/uL Red Blood Count 3.99 3.84 4.7-6.1 M/uL Hemoglobin 12.4 11.8 14.0-18.0 g/dL Hematocrit 37.8 36.4 42-52 % Mean Corpuscular Volume 94.7 94.8 80-100 fL Mean Corpuscular Hemoglobin 31.1 30.7 25-34 pg Mean Corpuscular Hemoglobin Concent 32.8 32.4 32-36 g/dl Platelet Count 213 205 130-400 K/uL Mean Platelet Volume 11.0 11.5 7.4-10.4 fL Neutrophils (%) (Auto) 45.0 % Lymphocytes (%) (Auto) 46.1 % Monocytes (%) (Auto) 7.5 % Eosinophils (%) (Auto) 0.9 % Basophils (%) (Auto) 0.3 % Neutrophils # (Auto) 2.62 1.4-6.5 K/uL Lymphocytes # (Auto) 2.69 1.2-3.4 K/uL Monocytes # (Auto) 0.44 0.11-0.59 K/uL Eosinophils # (Auto) 0.05 0-0.5 K/uL Basophils # (Auto) 0.02 0-0.2 K/uL RDW Standard Deviation 49.2 48.9 36.4-46.3 fL RDW Coefficient of Variation 14.1 14.1 11.5-14.5 % Immature Granulocyte % (Auto) 0.2 % Immature Granulocyte # (Auto) 0.01 0.00-0.02 K/uL Prothrombin Time 12.7 9.0-12.0 SECONDS Prothromb Time International Ratio 1.2 0.9-1.1 Activated Partial Thromboplast Time 25.9 21.0-31.0 SECONDS Partial Thromboplastin Ratio 1.0 Sodium Level 143 141 136-145 mmol/L Potassium Level 4.2 3.8 3.5-5.1 mmol/L Chloride Level 109 108 98-107 mmol/L Carbon Dioxide Level 29 28 21-32 mmol/L Anion Gap 5.0 5.0 3-11 mmol/L Blood Urea Nitrogen 20 18 7-18 mg/dl Creatinine 1.10 1.00 0.60-1.40 mg/dl Est Creatinine Clear Calc Drug Dose 55.0 57.1 ml/min Estimated GFR () 69.6 78.1 Estimated GFR (Non- 60.0 67.4 BUN/Creatinine Ratio 18.5 17.5 10-20 Random Glucose 106 80 70-99 mg/dl Calcium Level 8.8 8.9 8.5-10.1 mg/dl Magnesium Level 1.4 1.8 1.8-2.4 mg/dl Total Bilirubin 0.3 0.2-1 mg/dl Direct Bilirubin 0.1 0-0.2 mg/dl Aspartate Amino Transf (AST/SGOT) 28 15-37 U/L Alanine Aminotransferase (ALT/SGPT) 24 12-78 U/L Alkaline Phosphatase 125 45-117 U/L Total Protein 7.0 6.4-8.2 gm/dl Albumin 2.5 3.4-5.0 gm/dl Bedside Troponin I < 0.030 0-0.045 ng/ml Urine Color DK YELLOW Urine Appearance CLEAR CLEAR Urine pH 6.5 4.5-7.5 Urine Specific [place] 1.024 1.000-1.030 Urine Protein 2+ NEG Urine Glucose (UA) NEG NEG Urine Ketones TRACE NEG Urine Occult Blood NEG NEG Urine Nitrite NEG NEG Urine Bilirubin NEG NEG Urine Urobilinogen NEG NEG Urine Leukocyte Esterase NEG NEG Urine WBC (Auto) 1-5 0-5 /hpf Urine RBC (Auto) 0-4 0-4 /hpf Urine Hyaline Casts (Auto) 1-5 0-5 /lpf Urine Epithelial Cells (Auto) 5-10 0-5 /lpf Urine Bacteria (Auto) NEG NEG
--- NOTE | 2017-04-15 13:49 | Discharge Summary ---
Discharge Summary Date of Service Apr 15, 2017. Discharge Summary Admission Date: Apr 14, 2017 at 18:21 Discharge Date: Apr 15, 2017 Principal Diagnosis: WEAKNESS OF LOWER EXTREMITY /CHRONIC BACK PAIN Procedures: CT LUMBER SPINE : IMPRESSION: 1. No acute bony abnormality is seen involving the lumbar spine. 2. There are postoperative changes from L2-S1 spinal fusion. The orthopedic hardware appears intact. 3. There is lucency around the interpedicular screws in L2, which may represent loosening. 4. There are 2 metallic foreign bodies identified within the central canal posteriorly at the level of T12. These may represent catheter fragments, and clinical correlation will be essential. This is likely a contraindication to MRI. 5. Left pleural effusion. 6. Additional findings as above. Consultations: SPINAL ORTHOPEDICS Medication Reconciliation Changed Medications: Magnesium Oxide (Mag-Ox) 400 Mg Tab 400 MG PO BID for 30 Days, #60 TAB (Changed from: DAILY) Continued Medications: Aspirin (Aspirin Ec) 81 Mg Tab 81 MG PO DAILY Atorvastatin (Lipitor) 20 Mg Tab 20 MG PO DAILY, TAB B-Complex W/Biotin & Folic Aci (Super B-50 Complex) 1 Cap Cap 1 CAP PO DAILY Calcium Polycarbophil (Eq Fiber Laxative) 625 Mg Tab 625 MG PO DAILY PRN for Constipation Carvedilol (Carvedilol) 6.25 Mg Tab 6.25 MG PO BID Cod Liver Oil (Cod Liver Oil) 1 Cap Cap 1 CAP PO DAILY Docusate Sodium (Colace) 100 Mg Cap 100 MG PO BID Dronabinol (Marinol) 2.5 Mg Cap 2.5 MG PO BID Levetiracetam (Keppra) 500 Mg Tab 500 MG PO BID, TAB Lisinopril (Zestril) 10 Mg Tab 10 MG PO DAILY, TAB Melatonin (Kp Melatonin) 3 Mg Tab 3 MG PO HS Pantoprazole (Protonix) 40 Mg Tab 40 MG PO DAILY, #30 TAB Potassium Chloride Microencaps (Potassium Chloride Er) 10 Meq Tab 10 MEQ PO DAILY Admission Information HPI (per Admitting provider): this is a 86 yo M with past medical hx of chronic low back pain , spinal stenosis , HTN , CKD stage 3 came to ED for weakness of bilat lower ext pt mentions he has been experiencing chronic low back pain with radiation to both upper thigh and knee R> L had lumber decompression done by Dr Mix on 2013 pt mentions his back pain was not improved after the procedure recently he started to experience bilateral lower ext weakness feels his legs would give away he sustained a fall few days back , landed on his left knee worried about it -as he is being evaluated by Orthopedics -considering for left knee replacement during my time of interview , pt was comfortable mentions does not have any pain or discomfort while lying still or sitting walking for few min /standing causes severe pain on lower back , shooting down to legs denies of any bowel or bladder incontinence no report of fever or chills , no SOB , chest pain no Syncope Physical Exam (per Admitting): General Appearance: no apparent distress Head: normocephalic, atraumatic Eyes: sclerae normal Respiratory/Chest: chest non-tender, lungs clear, normal breath sounds, no respiratory distress Cardiovascular: regular rate, rhythm, no edema Abdomen/GI: normal bowel sounds, non tender, soft Back: normal inspection Extremities/Musculoskelatal: no pedal edema, normal range of motion ( limited range of motion on left leg due to back pain ) Neurologic/Psych: no motor/sensory deficits, alert, normal mood/affect Skin: normal color, warm/dry Lymphatic: no adenopathy Hospital Course LOWER EXT WEAKNESS : symptom has improved markedly no complain of back pain able to walk with walker MRI report shows: 1. There are postoperative changes from L2-S1 spinal fusion. The orthopedic hardware appears intact. 2. There is lucency around the interpedicular screws in L2, which may represent loosening. 3. There are 2 metallic foreign bodies identified within the central canal posteriorly at the level of T12. These may represent catheter fragments, and clinical correlation will be essential. This is likely a contraindication to MRI. appreciate input from spinal Ortho no surgical intervention recommended PT/OT cont pain management stable to be discharged home today LOW MG : possible causing lower ext weakness corrected Mg Oxide tab increased to BID ( was on once daily ) CKD STAGE 3 : renal function at baseline TYPE 2 DM: not on meds diet controlled HTN : cont lisinopril , Coreg GERD : PPI HX OF DVT /PE : S/P IVC filter placement not on anticoagulation due to bleeding risk ( hx of subdural hge ) FULL CODE DISPOSITION discharge home today out pt follow up with Orthopedics already has home health visiting nurse Medicine follow up with Dr Bee Discharge Instructions Discharge Instructions Date of Service Apr 15, 2017. Admission Reason for Admission: Back Pain, Weakness Of Both Leg Discharge Discharge Diagnosis / Problem: WEAKNESS OF LOWER EXTREMITY /CHRONIC BACK PAIN Discharge Goals Goal(s): Decrease discomfort, Improve disease control, Diagnostic testing Activity Recommendations Activity Limitations: as noted below ( TOLERATED ) Shower/Bathe: no limitations . Instructions / Follow-Up Instructions / Follow-Up HOSPITAL FOLLOW UP DR BEE ON April @ 2: 45 PM Current Hospital Diet Patient's current hospital diet: AHA Diet (Heart Healthy) Discharge Diet Recommended Diet: AHA Diet (Heart Healthy) Pending Studies Studies pending at discharge: no Medical Emergencies . Who to Call and When: Medical Emergencies: If at any time you feel your situation is an emergency, please call 911 immediately. . Non-Emergent Contact Non-Emergency issues call your: Primary Care Provider . . "Provider Documentation" section prepared by Miranda Mckeon. . VTE Core Measure Inpt VTE Proph given/why not?: Unfractionated heparin SQ Additional Copies To Eleazar Huerta M.D., Gregory M., D.O.
== END 2017-04-15 14:11 | disposition home health service (06) ==
LOC: C.EDB 14:52 → C.MSN 18:21 → ENRESERV 18:56
PROVIDERS: ADMIT Hospitalist; ATTEND Hospitalist
DX: E83.42 Hypomagnesemia (principal); M62.81 Muscle weakness (generalized); G30.9 Alzheimer's disease, unspecified; F02.80 Dementia in other diseases classified elsewhere, unspecified severity, without behavioral disturbance, psychotic disturbance, mood disturbance, and anxiety; E11.22 Type 2 diabetes mellitus with diabetic chronic kidney disease; I12.9 Hypertensive chronic kidney disease with stage 1 through stage 4 chronic kidney disease, or unspecified chronic kidney disease; E11.42 Type 2 diabetes mellitus with diabetic polyneuropathy; N18.3 Chronic kidney disease, stage 3 (moderate); Z86.74 Personal history of sudden cardiac arrest; E78.5 Hyperlipidemia, unspecified; K21.9 Gastro-esophageal reflux disease without esophagitis; H54.42 Blindness, left eye, normal vision right eye; G89.29 Other chronic pain; M54.5 Low back pain; Z86.73 Personal history of transient ischemic attack (TIA), and cerebral infarction without residual deficits; Z86.711 Personal history of pulmonary embolism; Z86.718 Personal history of other venous thrombosis and embolism; Z87.891 Personal history of nicotine dependence; Z79.82 Long term (current) use of aspirin; Z79.899 Other long term (current) drug therapy; Z91.81 History of falling

== ENCOUNTER 2017-09-24 14:48 | Emergency (ER) | payer OTHER, MEDICARE ==
[~2017-09-24] VITALS: Ht 182.9 cm; Wt 77.7 kg
[~2017-09-24 14:48] MED LIST changes: +B-CO1CAP2 PO; +CODCAP4 PO; +CRG625 PO; -HYDR-5688 PO; +LISI-461 PO
[2017-09-24 14:52] VITALS: TEMP 36.3; Ht 182.9 cm; Wt 77.7 kg
[2017-09-24] MEDS ORDERED: MILK AND MOLASSES ENEMA PR STA (15:16)
[2017-09-24] MEDS ORDERED: BISACODYL 10 MG SUPP PR STA (15:16)
--- NOTE | 2017-09-24 15:17 | EMERGENCY ROOM VISIT NOTE ---
History Report prepared by Maddy: Myah Schulz Under the Supervision of: Dr. Stacie Garcia M.D. First contact with patient: 14:55 Chief Complaint: CONSTIPATION Stated Complaint: CANT VOID History of Present Illness The patient is a 87 year old male who presents to the Emergency Room with complaints of constant constipation staring 5 days ago. The patient reports worsening abdominal pain beginning 3 days ago. He denies any vomiting. He reports using a suppository and stool softeners over the past five days with no relief. The patient recently had surgery on his scalp in [place] to remove skin cancer. The patient has a history of constipation and denies taking stool softeners daily. Source of History: patient Onset: 5 days ago Position: other (global) Quality: other (constipation) Associated Symptoms: + abdominal pain, No vomiting Review of Systems See HPI for pertinent positives & negatives. A total of 10 systems reviewed and were otherwise negative. 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 (19) Pneumonia (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 (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 (22) Weakness of both legs Surgical Problems: (1) H/O colonoscopy (2) H/O esophagogastroduodenoscopy (3) H/O laparoscopy (4) H/O neck surgery (5) H/O shoulder surgery (6) History of back surgery (7) History of carpal tunnel surgery (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 (9) S/P cholecystectomy (10) S/P IVC filter Family History Cancer Hypertension Social History Smoking Status: Never Smoker Alcohol Use: none Drug Use: none Marital Status: Housing Status: lives with family Occupation Status: retired Current/Historical Medications Scheduled Aspirin (Aspirin Ec), 81 MG PO DAILY Atorvastatin (Lipitor), 20 MG PO DAILY Calcium Polycarbophil (Eq Fiber Laxative), 1,250 MG PO DAILY Docusate Sodium (Colace), 100 MG PO BID Dronabinol (Marinol), 2.5 MG PO BID Levetiracetam (Keppra), 500 MG PO BID Lisinopril (Zestril), 10 MG PO DAILY Magnesium Oxide (mg Supplement (Magnesium Oxide), 400 MG PO BID Melatonin (Kp Melatonin), 3 MG PO HS Pantoprazole (Protonix), 40 MG PO DAILY Potassium Chloride Microencaps (Potassium Chloride Er), 10 MEQ PO DAILY Scheduled PRN Acetaminophen (Tylenol), 650 MG PO Q4H PRN for Pain or Fever Allergies Coded Allergies: Duloxetine (Verified Adverse Reaction, Mild, DIZZINESS, CONFUSION, ) Gabapentin (Verified Adverse Reaction, Mild, DIZZINESS, CONFUSION, ) Pregabalin (Verified Adverse Reaction, Mild, DIZZINESS, CONFUSION, ) Physical Exam Vital Signs Date Time Temp Pulse Resp B/P (MAP) Pulse Ox O2 Delivery O2 Flow Rate FiO2 09/24/17 17:25 78 18 127/78 98 09/24/17 14:52 36.3 99 18 133/88 98 Room Air Physical Exam Vital signs reviewed. General: Well-appearing older male, in no significant distress. HEENT: No scleral icterus, PERRLA, neck supple. Atraumatic. Cardiovascular: Regular rate and rhythm, no extra sounds. Pulmonary: Clear to auscultation bilaterally, normal work of breathing. Abdomen: Soft, nontender, nondistended, positive bowel sounds. Musculoskeletal: Atraumatic, no peripheral edema. Neurologic: Patient awake alert and oriented x 3, full strength in all 4 extremities. Cranial nerves 2 through 12 grossly intact. Skin: Warm, dry, no rash Rectal: Large amount of hard stool in rectum. Normal extraocular glucose. No gross blood. Medical Decision & Procedures ER Provider Diagnostic Interpretation: Radiology results as stated below per my review and radiologist interpretation: KUB FINDINGS: Mild to moderate stool volume is seen throughout the colon, notably within the transverse, splenic flexure and descending colon. Bowel gas pattern is nonobstructive. No definite urolith identified. IVC filter is noted at the level of L1-L2. Cholecystectomy. Posterior ulises and screw fusion hardware of the lumbar spine redemonstrated extending from L2-S1. Remote deformity of the right iliac wing is unchanged. Left greater than right periarticular ossifications redemonstrated about the hips. IMPRESSION: 1. Nonobstructive bowel gas pattern. 2. Mild to moderate volume of formed colonic stool, notably within the transverse and descending colon. Electronically signed by: Slade Tinsley M.D. Medications Administered Medications (Trade) Dose Ordered Sig/Behzad Route Start Time Stop Time Status Last Admin Dose Admin Bisacodyl (Dulcolax Supp) 10 mg NOW STAT WI 09/24/17 15:16 09/24/17 15:19 DC 09/24/17 15:36 10 MG ED Course 1504: Past medical records reviewed. The patient was evaluated in room B2. A complete history and physical examination was performed. 151: Ordered Milk and Molasses Enema 1 ea. WI, Bisacodyl 10 mg WI. 174: Upon reevaluation, the patient appeared to have improvement of his symptoms. I discussed findings with him. He verbalized agreement of the treatment plan. The patient was discharged home. Medical Decision Differential diagnosis: Etiologies such as functional constipation, impaction, obstruction, volvulus, metabolic abnormality, infection, neurologic, as well as others were entertained. This patient was evaluated and appeared to be in no significant distress. IV access was obtained and laboratory work was drawn. The patient was placed on the taffy puller and found to be patient's physical exam is fairly unrevealing with the exception of hard stool in the rectum. Patient was given a Dulcolax suppository. Abdominal x-ray series confirms fecal retention. Patient was disimpacted by nursing staff. He was given a milk and molasses enema with large results. Patient was discharged and advised to use MiraLAX 1- 2 times daily as needed for a bowel movement. He'll follow-up with his primary care physician and return to the ER for worsening of symptoms or any medical concerns. Medication Reconcilliation Current Medication List: was personally reviewed by me Blood Pressure Screening Patient's blood pressure: Normal blood pressure Impression Primary Impression: Constipation Scribe Attestation The scribe's documentation has been prepared under my direction and personally reviewed by me in its entirety. I confirm that the note above accurately reflects all work, treatment, procedures, and medical decision making performed by me. Departure Information Dispostion Home / Self-Care Referrals Eleazar Huerta M.D. (PCP) Forms HOME CARE DOCUMENTATION FORM, IMPORTANT VISIT INFORMATION Patient Instructions My [facility] Additional Instructions Diagnosis: Constipation MiraLAX 1 capful 1-2 times daily as needed for a BM. Increase the fiber and water in your diet. Follow-up with your primary care physician this week for reevaluation. Return to the ER for worsening of symptoms or any medical concerns.
[2017-09-24] MEDS ORDERED: MAGN400C3 PO (16:03)
[2017-09-24] MEDS ORDERED: ACET-1311 PO (16:03)
--- NOTE | 2017-09-24 16:05 | DIAGNOSTIC IMAGING REPORT ---
KUB HISTORY: Chronic constipation constipation COMPARISON: CT abdomen and pelvis 3 2016. FINDINGS: Mild to moderate stool volume is seen throughout the colon, notably within the transverse, splenic flexure and descending colon. Bowel gas pattern is nonobstructive. No definite urolith identified. IVC filter is noted at the level of L1-L2. Cholecystectomy. Posterior ulises and screw fusion hardware of the lumbar spine redemonstrated extending from L2-S1. Remote deformity of the right iliac wing is unchanged. Left greater than right periarticular ossifications redemonstrated about the hips. IMPRESSION: 1. Nonobstructive bowel gas pattern. 2. Mild to moderate volume of formed colonic stool, notably within the transverse and descending colon. Electronically signed by: Slade Tinsley M.D. 09/24/2017 4:03 PM Dictated Date/Time: 09/24/2017 4:00 PM
[2017-09-24 17:25] VITALS: BP 127/78; PULSE 78; O2SAT 98
== END 2017-09-24 17:26 | disposition home or self-care (01) ==
LOC: C.EDB 14:50
DX: K59.00 Constipation, unspecified (principal); G30.9 Alzheimer's disease, unspecified; I10 Essential (primary) hypertension; Z86.74 Personal history of sudden cardiac arrest; K21.9 Gastro-esophageal reflux disease without esophagitis; K57.92 Diverticulitis of intestine, part unspecified, without perforation or abscess without bleeding; Z86.73 Personal history of transient ischemic attack (TIA), and cerebral infarction without residual deficits; Z86.718 Personal history of other venous thrombosis and embolism; Z85.828 Personal history of other malignant neoplasm of skin; Z86.711 Personal history of pulmonary embolism; E78.5 Hyperlipidemia, unspecified; Z87.01 Personal history of pneumonia (recurrent); E11.22 Type 2 diabetes mellitus with diabetic chronic kidney disease; Z79.82 Long term (current) use of aspirin; Z79.899 Other long term (current) drug therapy; Z80.9 Family history of malignant neoplasm, unspecified; Z82.49 Family history of ischemic heart disease and other diseases of the circulatory system

== ENCOUNTER 2017-11-07 12:31 | Emergency (ER) | payer OTHER, MEDICARE ==
[~2017-11-07] VITALS: Ht 182.9 cm; Wt 84.3 kg
[~2017-11-07 12:31] MED LIST changes: -ATOR-22 PO; -B-CO1CAP2 PO; -CODCAP4 PO; -CRG625 PO; -DOCU-94 PO; -LEVE500T13 PO; -MAGN400T6 PO; -MELA1TAB5 PO
[2017-11-07 12:44] VITALS: Ht 182.9 cm; Wt 84.3 kg
[2017-11-07] MEDS ORDERED: ATOR-22 PO (14:38)
[2017-11-07] MEDS ORDERED: DOCU-94 PO (14:38)
[2017-11-07] MEDS ORDERED: LEVE500T13 PO (14:38)
[2017-11-07] MEDS ORDERED: MELA1TAB5 PO (14:38)
[2017-11-07] MEDS ORDERED: ONDANSETRON HOME PACK 4MG OD TAB ONE (15:16)
[2017-11-07] MEDS ORDERED: SOAP SUDS ENEMA PR STA (15:40)
[2017-11-07] MEDS ORDERED: LACTULOSE SYRUP 20 GM/30 ML UDC PO STA (15:40)
[2017-11-07] MEDS ORDERED: DOCUSATE SODIUM/SENNA 50/8.6MG TAB PO ONE (15:45)
--- NOTE | 2017-11-07 15:57 | EMERGENCY ROOM VISIT NOTE ---
History Report prepared by Maddy: Olivia Casillas Under the Supervision of: Dr. Lito Diallo M.D. First contact with patient: 15:31 Chief Complaint: CONSTIPATION Stated Complaint: CONSTIPATED Nursing Triage Summary: has had no bowel movement for 3 days has not tried any laxatives. History of Present Illness The patient is an 87 year old white male with a past medical history of DM, HTN , and a previous colon surgery who presents to the ED with a cc of constipation beginning 3-4 days THERAPY DIRECTOR. Positive nausea and diffuse abdominal pain. Negative fevers, chills, vomiting. He has not had a bowel movement in 3-4 days. He has not been passing gas for a couple of days. He has tried drinking prune juice and using stool softeners without any relief of his symptoms. Pt rates his pain as a 10/10 in severity. Source of History: patient Onset: 3-4 days THERAPY DIRECTOR Position: abdomen Symptom Intensity: 10/10 Quality: other (constipation) Timing: constant Associated Symptoms: + nausea, + abdominal pain, No fevers, No chills, No vomiting Review of Systems See HPI for pertinent positives and negatives. A total of ten systems were reviewed and were otherwise negative. 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 (19) Pneumonia (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 (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 (22) Weakness of both legs Surgical Problems: (1) H/O colonoscopy (2) H/O esophagogastroduodenoscopy (3) H/O laparoscopy (4) H/O neck surgery (5) H/O shoulder surgery (6) History of back surgery (7) History of carpal tunnel surgery (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 (9) S/P cholecystectomy (10) S/P IVC filter Family History Cancer Hypertension Social History Smoking Status: Never Smoker Alcohol Use: none Drug Use: none Marital Status: Housing Status: lives with family Occupation Status: retired Current/Historical Medications Scheduled Aspirin (Aspirin Ec), 81 MG PO DAILY Atorvastatin (Lipitor), 20 MG PO DAILY Betamethasone Dip (Betamethasone Dipropionat), 1 APPLN TOP BID Docusate Sodium (Colace), 100 MG PO BID Levetiracetam (Keppra), 500 MG PO BID Lisinopril (Zestril), 5 MG PO DAILY Magnesium Oxide (mg Supplement (Magnesium Oxide), 400 MG PO DAILY Melatonin (Kp Melatonin), 3 MG PO HS Scheduled PRN Acetaminophen (Tylenol), 650 MG PO Q4H PRN for Pain or Fever Calcium Polycarbophil (Eq Fiber Laxative), 625 MG PO DAILY PRN for Constipation Allergies Coded Allergies: Duloxetine (Verified Adverse Reaction, Mild, DIZZINESS, CONFUSION, ) Gabapentin (Verified Adverse Reaction, Mild, DIZZINESS, CONFUSION, ) Pregabalin (Verified Adverse Reaction, Mild, DIZZINESS, CONFUSION, ) Physical Exam Vital Signs Date Time Temp Pulse Resp B/P (MAP) Pulse Ox O2 Delivery O2 Flow Rate FiO2 11/07/17 20:11 98 18 125/80 94 11/07/17 17:24 36.3 60 18 149/87 95 Room Air 11/07/17 15:37 69 18 144/79 99 Room Air 11/07/17 12:44 36.7 79 20 123/60 96 Room Air Physical Exam GENERAL: Awake, alert, well-appearing, NAD HENT: Normocephalic, atraumatic. Blown left pupil and blindness of left eye. EYES: Normal conjunctiva. Sclera non-icteric. NECK: Supple. No nuchal rigidity. FROM. RESPIRATORY: CTAB, no rhonchi, wheezing, crackles CARDIAC: RRR, no MRG ABDOMEN: Soft, NTND, BS+. He does have a vertical lower abdominal incisional scar, not peritonitic. MSK: No chest wall TTP, no LE edema Rectal: stool impaction NEURO: GCS 15, CN 2-12 intact, moves all 4s on command SKIN: No rash or jaundice noted. Medical Decision & Procedures ER Provider Diagnostic Interpretation: Radiology results as stated below per my review and radiologist interpretation: KUB CLINICAL HISTORY: constipation x 3 days COMPARISON STUDY: CT of the abdomen and pelvis December 15, 2016 and KUB September 24, 2017 per FINDINGS: Incidental note is made of cholecystectomy clips, IVC filter and spinal fusion. Bilateral iliopsoas calcification is better depicted on CT of December 15, 2016. A few prominent loops and small bowel are noted without convincing evidence for a bowel obstruction. There is gas throughout the colon. There is a moderate amount of stool within the colon and rectum. IMPRESSION: 1. Moderate amount of stool within the colon and rectum. 2. A few prominent loops of small bowel without convincing evidence for a small bowel obstruction. Electronically signed by: Andrew Adam M.D. 11/07/2017 4:08 PM Dictated Date/Time: 11/07/2017 4:05 PM Medications Administered Medications (Trade) Dose Ordered Sig/Behzad Route Start Time Stop Time Status Last Admin Dose Admin Senna/Docusate Sodium (Senokot S Tab) 1 tab NOW ONCE PO 11/07/17 15:45 11/07/17 15:46 DC 11/07/17 15:47 1 TAB Lactulose (Chronulac Syrup) 30 gm NOW STAT PO 11/07/17 15:40 11/07/17 15:42 DC 11/07/17 15:47 30 GM Miscellaneous (Soap Suds Enema) 1 ea ONE STAT CO 11/07/17 15:40 11/07/17 15:42 DC 11/07/17 15:40 1 EA Miscellaneous Medication (Milk And Molasses Enema) 1 ea ONE STAT CO 11/07/17 17:46 11/07/17 17:47 DC 11/07/17 17:46 1 EA ED Course 1531: The patient was evaluated in room A2. A complete history and physical exam was performed. 1736: I disimpacted the patient at this time. 1942: I reassessed the patient at this time. He is feeling better and resting comfortably. He had much relief after a bowel movement. I discussed the results and treatment plan with the patient. I answered all pertaining questions that he had. He expressed understanding and verbalized agreement. The patient will be discharged home. Medical Decision Differential diagnoses includes bowel obstruction, constipation, colonic motility problem, medication side effect. The patient is an 87 year old white male with a past medical history of DM, HTN , and a previous colon surgery who presents to the ED with a cc of constipation beginning 3-4 days THERAPY DIRECTOR. Patient was seen and evaluated at the bedside. Patient was complaining of some decreased bowel movements ongoing the last 3 days. Patient was complaining some mild abdominal pain. On exam the patient is fairly asymptomatic. Patient has a nonsurgical abdomen is very soft and nondistended. Patient did have a KUB completed at that showed some fecal stasis as well as some mildly enlarged loops of bowel without evidence of SBO. Patient did have medications that were given as well as an enema. Patient did have passage of a small amount of feces. Patient did have a rectal exam performed and the patient did have a fair amount of stool in the rectal vault. A moderate amount of stool was removed. Patient was ordered an additional enema. Patient subsequently had a large bowel movement. Patient has a soft abdomen without any nausea or vomiting. Patient was afebrile with stable vital signs. I do not believe he requires any blood work or more advanced imaging at this time. Patient was deemed suitable for outpatient follow-up and treatment at this time. Patient was given strict follow-up, discharge, and return precautions. All questions were answered. Patient was deemed suitable for outpatient follow-up at this time. Patient agreed with the plan of care and was safely discharged home. The chart was completed utilizing [employer] Speech voice recognition software. Grammatical errors, random word insertions, pronoun errors, and incomplete sentences are an occasional consequence of this system due to software limitations, ambient noise, and hardware issues. Any formal questions or concerns about the content, text, or information contained within the body of this dictation should be directly addressed to the physician for clarification. Medication Reconcilliation Current Medication List: was personally reviewed by me Blood Pressure Screening Patient's blood pressure: Normal blood pressure Impression Primary Impression: Fecal impaction in rectum Additional Impression: Constipation Scribe Attestation The scribe's documentation has been prepared under my direction and personally reviewed by me in its entirety. I confirm that the note above accurately reflects all work, treatment, procedures, and medical decision making performed by me. Departure Information Dispostion Home / Self-Care Referrals No Doctor, Assigned (PCP) Patient Instructions Diet High Fiber Dc, Docusate Sodium Senna tablets or capsules, [facility] Additional Instructions Please return to the emergency department if you have worsening or recurrent symptoms not amenable to at-home treatment. Please call for a follow-up appointment with her primary care physician. Please take your medications as prescribed. If you have other concerns and/or complaints please feel free to also call your primary care physician's office or return the ED for further evaluation, management, and treatment. Please ensure you hydrate well. Consider taking a stool softener like docusate/ senna. You may also increase the fiber in her diet and taking MiraLAX. Take your medications as prescribed. You have been examined and treated today on an emergency basis only. This is not a substitute for, or an effort to provide, complete comprehensive medical care. It is impossible to recognize and treat all injuries or illnesses in a single emergency department visit. It is therefore important that you follow up closely with [facility], your PCP, and/or your specialist(s). Call as soon as possible for an appointment. Thank you for your time and consideration. I look forward to speaking with you again soon. Please don't hesitate to call us if you have any questions. Problem Qualifiers Additional Impression: Constipation Constipation type: unspecified constipation type Qualified Codes: K59.00 - Constipation, unspecified
[2017-11-07] MEDS ORDERED: MAGN400C3 PO (16:03)
[2017-11-07] MEDS ORDERED: ACET-1311 PO (16:03)
--- NOTE | 2017-11-07 16:09 | DIAGNOSTIC IMAGING REPORT ---
KUB CLINICAL HISTORY: constipation x 3 days COMPARISON STUDY: CT of the abdomen and pelvis December 15, 2016 and KUB September 24, 2017 per FINDINGS: Incidental note is made of cholecystectomy clips, IVC filter and spinal fusion. Bilateral iliopsoas calcification is better depicted on CT of December 15, 2016. A few prominent loops and small bowel are noted without convincing evidence for a bowel obstruction. There is gas throughout the colon. There is a moderate amount of stool within the colon and rectum. IMPRESSION: 1. Moderate amount of stool within the colon and rectum. 2. A few prominent loops of small bowel without convincing evidence for a small bowel obstruction. Electronically signed by: Andrew Adam M.D. 11/07/2017 4:08 PM Dictated Date/Time: 11/07/2017 4:05 PM
[2017-11-07] MEDS ORDERED: DPRSO45 TOP (16:10)
[2017-11-07] MEDS ORDERED: LEVE500T PO (16:10)
[2017-11-07] MEDS ORDERED: LISI-729 PO (16:10)
[2017-11-07 17:24] VITALS: TEMP 36.3
[2017-11-07] MEDS ORDERED: MILK AND MOLASSES ENEMA PR STA (17:46)
[2017-11-07 20:11] VITALS: BP 125/80; PULSE 98; O2SAT 94
== END 2017-11-07 20:11 | disposition home or self-care (01) ==
LOC: C.EDB 12:33 → C.EDA 20:11
DX: K56.41 Fecal impaction (principal); K59.00 Constipation, unspecified; R10.9 Unspecified abdominal pain; Z79.899 Other long term (current) drug therapy; G30.9 Alzheimer's disease, unspecified; I10 Essential (primary) hypertension; Z86.74 Personal history of sudden cardiac arrest; K21.9 Gastro-esophageal reflux disease without esophagitis; Z86.73 Personal history of transient ischemic attack (TIA), and cerebral infarction without residual deficits; Z86.718 Personal history of other venous thrombosis and embolism; Z86.711 Personal history of pulmonary embolism; E11.22 Type 2 diabetes mellitus with diabetic chronic kidney disease; Z79.82 Long term (current) use of aspirin